=== PATIENT | male | born 1955 | race Caucasian/White ===

== ENCOUNTER 2018-12-30 10:34 | Inpatient (IN) | payer OTHER, MEDICAID ==
[~2018-12-30] VITALS: Ht 175.3 cm; Wt 72.6 kg
[2018-12-30] VITALS (32 sets, daily range): BP systolic 58–162; BP diastolic 34–92
--- NOTE | 2018-12-30 10:57 | NUR ---
PT TAKE BY W/C WITH FAMILY TO ER BED 10
--- NOTE | 2018-12-30 10:58 | NUR ---
DR. COATS BEDSIDE EVALUATING PT
--- NOTE | 2018-12-30 11:00 | NUR ---
brought in by caretakers from detention [facility] c/o generalized weakness, drooling and nasal congestion x last night. cataract to L eye. diminshed lung sounds bilaterally. pt is usually able to respond with one word sentences. no gag reflex at this time. not verbally responsive. usually able to sit upright. pt hunched over and not able to keep himself straight in bed. treated for pink eye 2 days ago rx neomycin gtts hx---mrcp, seizure, schizophrenia, bph, cerebal palsy rx===see list
[2018-12-30] MEDS ORDERED: NACL 0.9% 1,000 ML IV SCH ×3 (11:04→18:25)
--- NOTE | 2018-12-30 11:06 | NUR ---
PLACED PT ON VISION BIPAP ST 12/5 RR 20 FIO2 100 , ALARMS ARE ON AND AUDIBLE, PT WEARING F\F MASK SIZE LG, BIPAP PLUGGED INTO RED OUTLET
--- NOTE | 2018-12-30 11:06 | NUR ---
BIPAP PLACED ON PT, RT AT BEDSIDE
--- NOTE | 2018-12-30 11:29 | NUR ---
# 14 FR Urinary catheter inserted utilizing sterile technique. Immediate return of YELLOW urine noted. Urine sample collected and sent to lab. Pt tolerated procedure WELL
[2018-12-30] MEDS ORDERED: NACL 0.9% 1,000 ML IV ONE (11:35)
--- NOTE | 2018-12-30 11:40 | NUR ---
INCREASED IPAP TO 14 DECREASED FIO2 TO .[address] COATS
[2018-12-30] MEDS ORDERED: PIPERACILLIN/TAZOBACTAM 3.375 GM in DEXTROSE 5% 50 ML IV ONE (11:45)
[2018-12-30 11:52] LABS: BASOPHILS % (AUTO) 0.2 % (0.0-2.0); EOSINOPHILS % (AUTO) 0.1 % (0.0-4.0); HEMATOCRIT 40.4 % (36-52); HEMOGLOBIN 13.4 g/dL (12.0-18.0); LYMPHOCYTES # (AUTO) 1.3 K/uL (2.0-11.5); LYMPHOCYTES % (AUTO) 9.5 % (20.5-51.1); MEAN CORPUSCULAR HEMOGLOBIN 32 pg (27-31); MEAN CORPUSCULAR HGB CONC 33 g/dL (33-37); MEAN CORPUSCULAR VOLUME 96.5 fL (80-94); MONOCYTES # (AUTO) 1.7 K/uL (0.8-1.0); MONOCYTES % (AUTO) 12.1 % (1.7-9.3); NEUTROPHILS # (AUTO) 10.9 K/uL (1.8-7.7); NEUTROPHILS % (AUTO) 78.1 % (42.2-75.2); PLATELET COUNT (AUTO) 182 K/uL (140-450); RED BLOOD CELL COUNT(AUTO) 4.19 MIL/uL (4.20-6.10); RED CELL DISTRIBUTION WIDTH 14.2 % (11.6-13.7)
[2018-12-30] MEDS ORDERED: PIPERACILLIN/TAZOBACTAM 3.375 GM VIAL IV ONE (12:00)
[2018-12-30 12:01] LABS: ANION GAP 10.5 (8-16); CARBON DIOXIDE 31.5 mmol/L (21-32); CREATININE 0.8 mg/dL (0.7-1.3)
[2018-12-30 12:08] LABS: ALBUMIN 2.8 g/dL (3.4-5.0); TOTAL BILIRUBIN 0.6 mg/dL (0.0-1.0)
--- NOTE | 2018-12-30 12:17 | NUR ---
lactic acid 3.0, reported to meme
[2018-12-30] MEDS ORDERED: DOCUSATE SODIUM 100 MG GELCAP PO PRN (12:30)
[2018-12-30] MEDS ORDERED: ACETAMINOPHEN 325 MG TAB PO PRN (12:30)
[2018-12-30] MEDS ORDERED: ONDANSETRON 4 MG/2 ML VIAL IM/IVP PRN (12:30)
[2018-12-30 12:39] LABS: APPEARANCE,URINE CLOUDY (CLEAR); BILIRUBIN,URINE NEGATIVE (NEGATIVE); BLOOD, URINE 3+ (NEGATIVE); COLOR,URINE YELLOW (YELLOW); LEUKOCYTE ESTERASE ,URINE 2+ (NEGATIVE); NITRITE, URINE NEGATIVE (NEGATIVE); UGLUCOSE TRACE (NEGATIVE)
[2018-12-30 12:51] LABS: RBC,URINE 11-20 (MOD) /HPF (0-5); WBC,URINE >25 (MANY) /HPF (0-5)
[2018-12-30] MEDS ORDERED: ALBUTEROL SULFATE/IPRATROPIU 3 ML SOL IH PRN (13:05)
--- NOTE | 2018-12-30 13:11 | NUR ---
PT RETURNED FROM CT
--- NOTE | 2018-12-30 13:12 | NUR ---
1258-- PT LEFT TO CT VIA ANJELICA
--- NOTE | 2018-12-30 13:13 | NUR ---
PMD AT BEDSIDE
--- NOTE | 2018-12-30 13:40 | NUR ---
pt resting in bed, caregiver bedside, vital signs taken
[2018-12-30] MEDS ORDERED: LORazepam 2 MG/ML VIAL IVP SCH (13:50)
--- NOTE | 2018-12-30 14:03 | NUR ---
Pt transferred to ICU via BED WITH TRISHA LOPEZ .
[2018-12-30 14:06] LABS: BARBITURATE, URINE NEG. ng/ml (NEG <=200); BENZODIAZEPINE, URINE NEG. ng/mL (NEG <=200); CANNABINOID, URINE NEG. ng/mL (NEG <=50); COCAINE, URINE NEG. ng/mL (NEG <=300); OPIATE, URINE NEG. ng/mL (NEG <=2000); PHENCYCLIDINE SCREEN,URINE NEG. ng/mL (NEG <=25)
--- NOTE | 2018-12-30 14:10 | NUR ---
Patient will be admitted to care of [facility]. Admited to icu. Will go to room 7. Belongings list completed. Report to aman powers.
[2018-12-30 14:15] LABS: CHOL/HDL RATIO 2.6 (1-4.5); FREE T4 (FREE THYROXINE) 0.96 ng/dL (0.76-1.46); MAGNESIUM 2.1 mg/dL (1.8-2.4); THYROID STIMULATING HORMONE 5.24 uIU/mL (0.34-3.74)
--- NOTE | 2018-12-30 14:15 | NUR ---
ADMITTED FROM ER THIS 63 YR. OLD WHITE MALE PER ANJELICA ACCPD. BY ER NURSES WITH CHIEF COMPLAINT OF WEAKNESS AND SOB. PT ON BIPAP 14/, FI02 40%. R 20/MIN. 02 SAT 100%. NO RESP. DISTRESS NOTED. CAREGIVERS AT BEDSIDE. INFORMATION OBTAINED FROM CARE GIVERS. HEP LOCK ON RT HAND G 20. ORAL AND MAXILLOFACIAL SURGERY SHOWS AR TO AB HR 58 TO 65/MIN.,
[2018-12-30] MEDS ORDERED: DEXTROMETHORPHAN PO SCH (14:30)
[2018-12-30] MEDS ORDERED: PROMETHAZINE PO SCH (14:30)
--- NOTE | 2018-12-30 14:30 | NUR ---
RESTLESS AT TIMES TRIES TO REACH FOR BIPAP. REORIENTED PRN.
[2018-12-30] MEDS ORDERED: PHEN100C3 PO (14:43)
[2018-12-30] MEDS ORDERED: OMEP20TC12 PO (14:43)
[2018-12-30] MEDS ORDERED: CALC-53 PO (14:43)
[2018-12-30] MEDS ORDERED: PROM118S4 PO (14:43)
[2018-12-30] MEDS ORDERED: DOCU-299 PO (14:43)
[2018-12-30] MEDS ORDERED: LAM25 PO (14:43)
[2018-12-30] MEDS ORDERED: DEXT1DRO4 OP (14:43)
[2018-12-30] MEDS ORDERED: TAMS0.4C96 PO (14:43)
[2018-12-30] MEDS ORDERED: ARIP15TA1 PO (14:43)
[2018-12-30] MEDS ORDERED: DIVA500T1 PO (14:43)
[2018-12-30] MEDS ORDERED: LACT10SO1 PO (14:43)
[2018-12-30] MEDS ORDERED: PRAM0.5T4 PO (14:43)
[2018-12-30] MEDS ORDERED: TRAZ-343 PO (14:43)
[2018-12-30] MEDS ORDERED: HYDR25CA10 PO (14:43)
[2018-12-30] MEDS ORDERED: BENZ2TAB27 PO (14:43)
[2018-12-30] MEDS ORDERED: PROMETHAZINE DM 6.25/15MG-5ML ORASYR PO PRN (15:00)
[2018-12-30] MEDS: NACL 0.9% 1,000 ML IV SCH ×2 (15:00→21:11)
--- NOTE | 2018-12-30 15:30 | NUR ---
TEMP 94.6 DEGREES. BEAR HUGGER PLACED.
--- NOTE | 2018-12-30 15:58 | NUR ---
FNS CONSULT FOR FAILURE TO THRIVE WAS RECEIVED. RD RECOMMENDATIONS FOR TUBE FEEDING ARE JEVITY 1.2 @ 75 ML/HR X 24 HR WITH FREE WATER FLUSH 120 ML Q4H. START AT AT 15 ML/HR AND ADVANCE BY 15 ML/HR Q4H. -THIS WILL PROVIDE 2160 KCAL AND 108 GRAMS OF PROTEIN. CHRISSIE ART RD
--- NOTE | 2018-12-30 16:00 | NUR ---
DR. SZYMANSKI AT BEDSIDE AWARE OF PT'S HR AND BP.
--- NOTE | 2018-12-30 16:15 | NUR ---
DR. SZYMANSKI CALLED PT'S SISTER ALEXANDRO OLIVER. CONSENT FRO CENTRAL LINE INSERTION OBTAINED.
[2018-12-30] MEDS ORDERED: DOCUSATE SODIUM 100 MG GELCAP PO SCH (17:00)
--- NOTE | 2018-12-30 17:00 | NUR ---
UNABLE TO INSERT JUGULAR CENTRAL LINE. DR. SZYMANSKI SPOKE TO PT'S SISTER SISTER RE: FEMORAL CENTRAL LINE INSERTION. CONSENT OBTAINED.
[2018-12-30] MEDS ORDERED: LORazepam 2 MG/ML VIAL IM/IVP PRN (17:55)
--- NOTE | 2018-12-30 18:00 | NUR ---
FEMORAL LINE INSERTION UNSUCCESSFUL.
[2018-12-30] MEDS: PIPERACILLIN/TAZOBACTAM 3.375 GM in DEXTROSE 5% 50 ML IV SCH (18:03)
[2018-12-30] MEDS ORDERED: DEXTROSE 50% 50 ML SYR IVP PRN (18:20)
--- NOTE | 2018-12-30 18:30 | NUR ---
GOMEZ CATH. FR 16 INSERTED ASEPTICALLY. OBTAINED 350 ML OF CLOUDY YELLOW URINE.
[2018-12-30] MEDS ORDERED: ALBUTEROL SULFATE/IPRATROPIU 3 ML SOL IH SCH (19:00)
--- NOTE | 2018-12-30 19:00 | NUR ---
DR. RAMIREZ AT BEDSIDE TO INTUBATE PT.AND INSERT CENTRAL LINE.
[2018-12-30] MEDS ORDERED: PROPOFOL 1000 MG/100 ML PREMIX 100 ML IV ONE (19:04)
[2018-12-30] MEDS ORDERED: MIDAZOLAM MDV 50 MG in NACL 0.9% 40 ML IV PRN (19:40)
[2018-12-30] MEDS ORDERED: VANCOMYCIN PER PHARMACY MC PRN (19:40)
[2018-12-30 19:45] LABS: PHENYTOIN (DILANTIN) 10.5 ug/ml (10.0-20.0)
[2018-12-30] MEDS ORDERED: VANCOMYCIN 1GM/DEXT 5% PREMIX 200 ML IV SCH (20:00)
--- NOTE | 2018-12-30 20:00 | NUR ---
RECEIVED PT FROM JOCELYNE RICO, DR. RAMIREZ, AND FELLOW DOCTORS ARE AT THE BEDSIDE. PT IS ON LEVOPHED, INTUBATED ON THE VENT, BREATHING NORMALLY ON THE VENT. GCS 10, SEDATED. LIJ TLC INTACT, RIGHT FEMORAL ART LINE IS INTACT. GOMEZ CATHETER INTACT AND DRAINING WELL, OGT INSERTED BY SALOMÓN, C-XRAY DONE. WILL WAIT FOR THE RESULT.
[2018-12-30] MEDS ORDERED: CALCIUM CARBONATE PO SCH (21:00)
[2018-12-30] MEDS ORDERED: PHENYTOIN 100 MG CAPER PO SCH (21:00)
[2018-12-30] MEDS: PRAMIPEXOLE 0.5 MG TAB PO SCH (21:00)
[2018-12-30] MEDS: BENZTROPINE 1 MG TAB PO SCH (21:00)
[2018-12-30] MEDS ORDERED: THIAMINE 200 MG/2 ML VIAL ONE ×2 (21:00→21:12)
[2018-12-30] MEDS ORDERED: [UNRECOGNIZED DRUG - OTHER] PO SCH (21:00)
[2018-12-30] MEDS ORDERED: VITAMIN D3 PO SCH (21:00)
[2018-12-30] MEDS: PANTOPRAZOLE 40 MG INJ VIAL IVP SCH (21:06)
[2018-12-30] MEDS: CALCIUM CARB/VIT-D 500 MG/200 IU 1 TAB PO SCH (21:12)
[2018-12-30] MEDS: DIVALPROEX 500 MG TABEC PO SCH (21:12)
[2018-12-30] MEDS ORDERED: VANCOMYCIN 1,000 MG VIAL ONE (21:13)
[2018-12-30] MEDS ORDERED: PROPOFOL 1000 MG/100 ML PREMIX 100 ML IV PRN (21:30)
[2018-12-30 21:31] LABS: BASOPHILS % (AUTO) 0.1 % (0.0-2.0); EOSINOPHILS % (AUTO) 0.3 % (0.0-4.0); HEMATOCRIT 38.4 % (36-52); HEMOGLOBIN 12.9 g/dL (12.0-18.0); LYMPHOCYTES # (AUTO) 1.1 K/uL (2.0-11.5); LYMPHOCYTES % (AUTO) 9.2 % (20.5-51.1); MEAN CORPUSCULAR HEMOGLOBIN 32 pg (27-31); MEAN CORPUSCULAR HGB CONC 34 g/dL (33-37); MEAN CORPUSCULAR VOLUME 96.1 fL (80-94); MONOCYTES # (AUTO) 1.4 K/uL (0.8-1.0); MONOCYTES % (AUTO) 11.8 % (1.7-9.3); NEUTROPHILS # (AUTO) 9.5 K/uL (1.8-7.7); PLATELET COUNT (AUTO) 162 K/uL (140-450); RED CELL DISTRIBUTION WIDTH 13.7 % (11.6-13.7); WHITE BLOOD COUNT (AUTO) 12.1 K/uL (4.8-10.8)
[2018-12-30] MEDS: THIAMINE 200 MG in NACL 0.9% 50 ML IV SCH (21:33)
[2018-12-30 21:44] LABS: ALBUMIN 2.5 g/dL (3.4-5.0); ANION GAP 9.9 (8-16); CARBON DIOXIDE 27.7 mmol/L (21-32); CREATININE 0.4 mg/dL (0.7-1.3); POTASSIUM 3.6 mmol/L (3.5-5.1); TOTAL BILIRUBIN 0.6 mg/dL (0.0-1.0)
--- NOTE | 2018-12-30 22:57 | NUR ---
DR. DILLARD MADE AWARE OF THE C-XARY, SHE STATES OK TO USE.
--- NOTE | 2018-12-30 22:58 | NUR ---
PT COMFORTABLE, RESPONDING WELL TO LEVOPHED, IVF RUNNING, IV ABTX GIVEN. WILL CONTINUE TO MONITOR CLOSELY.
[2018-12-30 23:28] LABS: NEUTROPHILS % (AUTO) 78.6 % (42.2-75.2)
[2018-12-30] MEDS: ALBUTEROL SULFATE/IPRATROPIU 3 ML SOL IH SCH (23:34)
[2018-12-30] MEDS: MIDAZOLAM MDV 100 MG in NACL 0.9% 80 ML IV PRN (23:56)
[2018-12-30] MEDS: fentaNYL 1 MG in NACL 0.9% 80 ML IV PRN (23:59)
[2018-12-31] VITALS (101 sets, daily range): BP systolic 62–144; BP diastolic 32–109
[2018-12-31] MEDS ORDERED: PIPERACILLIN/TAZOBACTAM 3.375 GM VIAL IV ONE ×2 (01:03→05:32)
[2018-12-31] MEDS: Z-GUARD PASTE TP SCH ×2 (01:04→13:17)
[2018-12-31] MEDS: HYDROCORTISONE NA SUCC 100 MG/2 ML VIAL IV SCH ×5 (01:05→23:57)
[2018-12-31] MEDS: PIPERACILLIN/TAZOBACTAM 3.375 GM in DEXTROSE 5% 50 ML IV SCH ×4 (01:06→18:41)
--- NOTE | 2018-12-31 01:29 | NUR ---
PT SEDATED, COMFORTABLE, RESPONDING WELL TO LEVOPHED, TITRATING DOWN ON LEVOPHED PER PROTOCOL. WILL CONTINUE TO MONITOR CLOSELY.
[2018-12-31] MEDS: ALBUTEROL SULFATE/IPRATROPIU 3 ML SOL IH SCH ×6 (03:53→23:10)
[2018-12-31] MEDS: NACL 0.9% 1,000 ML IV SCH ×4 (04:38→22:57)
--- NOTE | 2018-12-31 05:02 | NUR ---
PT LIGHTLY SEDATED, V/S STABLE WITH LEVOPHED ONGOING, CONTINUE ON FENTANYL AND VERSED DRIP. NO S.S OF ANY ACUTE DISTRESS AT THIS TIME, WILL CONTINUE TO MONITOR CLOSELY.
[2018-12-31 05:19] LABS: BASOPHILS % (AUTO) 0.2 % (0.0-2.0); EOSINOPHILS % (AUTO) 0.3 % (0.0-4.0); HEMATOCRIT 30.8 % (36-52); HEMOGLOBIN 10.6 g/dL (12.0-18.0); LYMPHOCYTES # (AUTO) 0.9 K/uL (2.0-11.5); LYMPHOCYTES % (AUTO) 11.1 % (20.5-51.1); MEAN CORPUSCULAR HEMOGLOBIN 33 pg (27-31); MEAN CORPUSCULAR HGB CONC 34 g/dL (33-37); MEAN CORPUSCULAR VOLUME 95.8 fL (80-94); MONOCYTES # (AUTO) 0.7 K/uL (0.8-1.0); MONOCYTES % (AUTO) 7.9 % (1.7-9.3); NEUTROPHILS # (AUTO) 6.8 K/uL (1.8-7.7); NEUTROPHILS % (AUTO) 80.5 % (42.2-75.2); PLATELET COUNT (AUTO) 129 K/uL (140-450); RED BLOOD CELL COUNT(AUTO) 3.22 MIL/uL (4.20-6.10); RED CELL DISTRIBUTION WIDTH 13.6 % (11.6-13.7); WHITE BLOOD COUNT (AUTO) 8.4 K/uL (4.8-10.8)
[2018-12-31 05:24] LABS: ANION GAP 7.7 (8-16); CARBON DIOXIDE 27.8 mmol/L (21-32); CREATININE 0.4 mg/dL (0.7-1.3); POTASSIUM 3.5 mmol/L (3.5-5.1)
[2018-12-31 05:27] LABS: MAGNESIUM 1.7 mg/dL (1.8-2.4); PHOSPHORUS 3.2 mg/dL (2.5-4.9)
--- NOTE | 2018-12-31 05:53 | NUR ---
PT STABLE, RESPONDING WELL TO LEVOPHED AND SEDATION. WILL CONTINUE TO MONITOR CLOSELY.
[2018-12-31 06:43] LABS: PROTHROMBIN TIME 10.7 secs (10.8-13.4)
--- NOTE | 2018-12-31 06:59 | NUR ---
RECEIVED PT ON CARESCAPE ON DOCUMENTED SETTINGS, ALARMS ARE ON AUDIBLE, PTS ETT IS SECURE SIZE 7.5 25 CM , ANCHOR FAST IN PLACE,PT IN HF ASLEEP PT IS RESTRAINED,HHN GVIEN I\L WITH 3 MG DUONEB BMV HOB , VENT PLUGGED INTO RED OUTLET
--- NOTE | 2018-12-31 07:12 | NUR ---
DECREASED FIO2 TO 28 SPO2 100
--- NOTE | 2018-12-31 07:21 | NUR ---
BEDSIDE REPORT GIVEN TO FRANKLIN RN, PLAN TO START FEEDING, KEEP MAP ABOVE 65, AND CONTINUE TO FOLLOW MD'S ORDERS, TREATMENT PLANS,
--- NOTE | 2018-12-31 07:25 | NUR ---
RECEIVED BEDSIDE REPORT FROM BRAIDER TENDER RN. PT IS ETT TO VENT SIZE 7.5, AC/VC, FIO2 28% VT 350 RR 13 PEEP 5. SR ON MONITOR. FLACC-0, RASS -3. PERRL, SIZE 3. LUNG SOUNDS CLEAR, NO S/S OF ACUTE RESPIRATORY DISTRESS. S1S2 HEARD, CAP REFILL LESS THAN 3 SECONDS. NO EDEMA NOTED. ORAL GASTRIC TUBE IN PLACE, WILL START TUBE FEEDING. ABDOMEN SOFT AND NON TENDER. SOFT WRIST RESTRAINTS ON, NO SIGNS OF INJURY. GOMEZ CATH IN PLACE DRAINING CLOUDY YELLOW URINE. SACRAL AREA NONBLANCHABLE REDNESS. LEFT IJ CENTRAL LINE, TRIPLE LUMEN INFUSING FENTANYL 0.5MCG/KG/MIN AND VERSED 2ML/HR. LEVOPHED 2MCG/MIN, DRY WEIGHT 60 KG, NS AT 150 ML/HR. IV CATH RIGHT HAND 20G, RIGHT WRIST 20G, AND LEFT AC 20G, FLUSHED, PATENT AND INTACT. PT ON ARTERIAL PRESSURE MONITORING. 93/55. HOB ELEVATED, SIDE RAILS UP, WILL CONTINUE TO MONITOR.
[2018-12-31] MEDS ORDERED: MAG SULF 2000 MG/WATER PREMIX 50 ML IV SCH (07:30)
[2018-12-31] MEDS: ASCORBIC ACID INJ 1,500 MG in NACL 0.9% 100 ML IV SCH ×6 (08:20→23:56)
--- NOTE | 2018-12-31 08:32 | NUR ---
PATIENT HAS BEEN SCREENED AND CATEGORIZED HIGH NUTRITION RISK. PATIENT WILL BE SEEN WITHIN 1-2 DAYS OF ADMISSION. 12/31/18-01/01/[address]
[2018-12-31] MEDS ORDERED: NON-FORMULARY ITEM (Lactulose 30 ML) PO SCH (09:00)
[2018-12-31] MEDS ORDERED: NON-FORMULARY ITEM (Dextran 70/Hypromellose (Artificial Tears) 1 EACH) OP SCH (09:00)
[2018-12-31] MEDS: VANCOMYCIN 750 MG in DEXTROSE 5% 250 ML IV SCH ×2 (09:36→16:56)
[2018-12-31] MEDS: BLOOD GLUCOSE MONITORING 1 DEV DEV FS SCH ×3 (09:40→17:09)
[2018-12-31] MEDS: PRAMIPEXOLE 0.5 MG TAB PO SCH ×2 (09:49→21:30)
[2018-12-31] MEDS: ARIPiprazole 10 MG TAB PO SCH (09:50)
[2018-12-31] MEDS: BENZTROPINE 1 MG TAB PO SCH ×2 (09:51→21:30)
[2018-12-31] MEDS: LACTULOSE 20 GM/30 ML UDC PO SCH (09:52)
[2018-12-31] MEDS: CALCIUM CARB/VIT-D 500 MG/200 IU 1 TAB PO SCH ×2 (09:52→21:31)
[2018-12-31] MEDS: DIVALPROEX 500 MG TABEC PO SCH (09:53)
[2018-12-31] MEDS: TAMSULOSIN 0.4 MG CAP PO SCH (09:55)
[2018-12-31] MEDS: lamoTRIgine 25 MG TAB PO SCH (09:55)
[2018-12-31] MEDS: PANTOPRAZOLE 40 MG INJ VIAL IVP SCH ×2 (09:56→21:08)
[2018-12-31] MEDS: POLYVINYL ALCOHOL 1.4% OP 15 ML SOL OP SCH (09:57)
--- NOTE | 2018-12-31 10:05 | NUR ---
OGT CLOGGED, PULLED IT OUT AND INSERTED A NEW OGT. AUSCULTATED FOR POSITIVE PLACEMENT AND CONFIRMED WITH NORMA RICO.
[2018-12-31] MEDS ORDERED: DOCUSATE 100 MG/10 ML UDC NG PRN (10:07)
[2018-12-31] MEDS ORDERED: VALPROIC ACID 250 MG/5 ML UDC ONE (10:11)
[2018-12-31] MEDS: PHENYTOIN 100 MG/4 ML UDC NG SCH ×3 (10:15→21:30)
[2018-12-31] MEDS ORDERED: PHENYTOIN 100 MG/4 ML UDC NG SCH (10:19)
--- NOTE | 2018-12-31 11:00 | NUR ---
STARTED G TUBE FEEDING AT 15ML/HR, WATER FLUSH 120ML Q4H.
[2018-12-31] MEDS: THIAMINE 200 MG in NACL 0.9% 50 ML IV SCH ×2 (11:13→21:26)
--- NOTE | 2018-12-31 11:35 | NUR ---
STARTED CVP MONITORING.
[2018-12-31] MEDS: NOREPINEPHRINE 4 MG in DEXTROSE 5% 250 ML IV PRN (11:38)
--- NOTE | 2018-12-31 13:05 | NUR ---
OGT RESIDUAL 0ML, INCREASED FEEDING TO 30ML/HR. H2O FLUSH 120ML Q4H
[2018-12-31] MEDS ORDERED: VALPROIC ACID 250 MG/5 ML UDC NG SCH (13:29)
--- NOTE | 2018-12-31 14:31 | NUR ---
12/31/18 RD INITIAL ASSESSMENT COMPLETED PLEASE REFER TO NUTRITION ASSESSMENT UNDER CARE ACTIVITY FOR ESTIMATED NUTRITIONAL NEEDS. 1. CONTINUE JEVITY @ 75 ML/HR -THIS WILL PROVIDE 1800 ML, 2160 KCAL, AND 108 GM OF PROTEIN, WHICH MEET >75% OF ESTIMATED NEEDS 2. CONTINUE FREE WATER FLUSH OF 120 ML Q4H 3. IF PATIENT IS WEANED OFF MECH. VENT, CONSIDER A SWALLOW EVALUATION ORDER 4. RD TO FOLLOW-UP 2-3 DAYS, HIGH RISK CHRISSIE ART RD
--- NOTE | 2018-12-31 16:15 | NUR ---
OGT RESIDUAL 0ML, INCREASED FEEDING TO 45ML/HR. H2O FLUSH 120ML Q4H
--- NOTE | 2018-12-31 16:45 | NUR ---
CVP 9, A LINE PRESSURE 96/48
[2018-12-31] MEDS: DOCUSATE 100 MG/10 ML UDC NG SCH (17:02)
[2018-12-31] MEDS: OFLOXACIN 0.3% OP 5 ML BTL OP SCH ×2 (17:07→21:22)
--- NOTE | 2018-12-31 17:17 | NUR ---
BLOOD SUGAR 153, MADE DR MASCORRO AWARE THAT RUBIA IS NOT ON EMAR. DR MASCORRO SAID IT'S OK, SHE IS NOT TOO WORRIED ABOUT IT. BUT IF IT GOES UP TO 180 AND ABOVE, WE NEED TO LET HER KNOW.
--- NOTE | 2018-12-31 19:00 | NUR ---
OGT RESIDUAL 20ML, INCREASED FEEDING TO 60ML/HR. H2O FLUSH 120ML Q4H
--- NOTE | 2018-12-31 19:15 | NUR ---
RECEIVED CHANGE OF SHIFT REPORT FROM AM NURSE. PATIENT IS SEDATED AND INTUBATED - ETT SIZE 7.5 TO VENT . ETT TO VENT WITH SETTINGS: FIO2 28%, AC 14, VT 350, FLOW 30 L/MIN, AND PEEP 5. PERRL IS PRESENT WITH PUPILS BILATERAL SIZE 3MM. SKIN IS WARM, DRY, AND INTACT EXCEPT FOR SACRAL REDNESS WHICH IS CURRENTLY COVERED BY A CLEAN DRY/INTACT DRESSNING. PULSES 2+ BILATERAL UPPER AND LOWER EXTREMITIES. LUNG SOUNDS HAVE CRACKLES THROUGHOUT. NSR ON MATERIALS INTERN. S1 AND S2 SOUND PRESENT. LEFT AC 20 GAUGE PATENT IV SITE WITH DRESSING/SITE DRY AND INTACT, AND SALINE LOCKED. RIGHT HAND 20 GAUGE PATENT IV SITE WITH DRESSING/SITE DRY AND INTACT. RIGHT WRIST 20 GAUGE PATENT IV SITE WITH DRESSING/SITE DRY AND INTACT. RIGHT FEMORAL CENTRAL LINE WITH A-LINE - WHICH HAS BEEN ZEROED AND FLUSHED - LINE IS PATENT AND DRESSING/SITE IS DRY AND INTACT. PATIENT IS HAS LEFT IJ TRIPLE LUMEN CENTRAL LINE WITH ALL LUMENS PATENT AND SITE/DRESSING IS DRY/INTACT. RIGHT IJ HAS CVP MONITORING WHICH CURRENTLY READS 8 AFTER HAVING BEEN ZEROED AND FLUSHED. VERSED IS RUNNING AT 2MG/H, VITAMIN C IS RUNNING 134 ML/H, LEVOPHED IS RUNNING AT 3 MCG/MIN, FENTANYL IS RUNNING AT 0.5 MCG/KG/H, AND NS IS RUNNING AT 150ML/H. PATIENT HAS OG TUBE IN PLACE WITH 50ML GASTRIC RESIDUALS AT THIS TIME, AND TUBE IS PATENT AND POSITIVE FOR PLACEMENT. FEEDING FORMULA IS JEVITY 1.2 RUNNING AT 45ML/H WITH WATER FLUSH 120CC Q4H (WILL INCREASE FORMULA UP TILL 75ML/H THIS SHIFT PRESCRIBED, AND IF PATIENT CAN TOLERATE IT). GOMEZ CATHETER IN PLACE AND URINE IS ALEXEI AND CLEAR. NO BOWEL MOVEMENT AT THIS TIME. BED LEFT IN LOW SEMI FOWLERS POSITION, SIDE RAILS UPX2 WITH CALL LIGHT WITHIN REACH. WILL CONTINUE TO MONITOR.
[2018-12-31] MEDS ORDERED: THIAMINE 200 MG/2 ML VIAL ONE (21:00)
[2018-12-31] MEDS ORDERED: PHENYTOIN 100 MG/4 ML UDC ONE ×2 (21:17→21:42)
[2018-12-31] MEDS: VALPROIC ACID 250 MG/5 ML UDC NG SCH (21:28)
[2018-12-31] MEDS: FERROUS SULFATE 300 MG/5 ML UDC GT SCH (21:30)
--- NOTE | 2018-12-31 21:30 | NUR ---
RECEIVED A CALL FROM PT'S CAREGIVER, BRIANNE BENITEZ, AND SHE WAS WANTING AN UPDATE REGARDING PT'S CONDITION. UPDATE WAS PROVIDED.
--- NOTE | 2018-12-31 21:30 | NUR ---
GAVE SCHEDULED MEDS, REPOSITIONED PATIENT'S HEAD, AND SUCTIONED PATIENT (THICK/LARGE AMOUNT OF SECRETIONS WERE EXTRACTED). PATIENT TOLERATED CARE WELL AND VITAL SIGNS ARE STABLE.
[2019-01-01] VITALS (104 sets, daily range): BP systolic 77–141; BP diastolic 41–109
--- NOTE | 2019-01-01 | NUR ---
GAVE SCHEDULED MEDS, REPOSITIONED PATIENT, PERFORMED ORAL CARE AND SUCTIONED PATIENT (THICK/LARGE AMOUNT OF SECRETIONS WERE EXTRACTED). PATIENT'S NECK TOWEL WAS ALSO CHANGED AND SECRETIONS ON SURROUNDING NECK/MOUTH WERE CLEANED PATIENT TOLERATED CARE WELL AND VITAL SIGNS ARE STABLE.
[2019-01-01] MEDS: PIPERACILLIN/TAZOBACTAM 3.375 GM in DEXTROSE 5% 50 ML IV SCH ×3 (00:01→12:28)
[2019-01-01] MEDS: VANCOMYCIN 750 MG in DEXTROSE 5% 250 ML IV SCH ×2 (01:55→09:03)
[2019-01-01] MEDS: Z-GUARD PASTE TP SCH ×2 (01:56→13:50)
--- NOTE | 2019-01-01 02:00 | NUR ---
GAVE SCHEDULED MEDS AND REPOSITIONED PATIENT.PATIENT TOLERATED CARE WELL AND VITAL SIGNS ARE STABLE.
[2019-01-01] MEDS: ALBUTEROL SULFATE/IPRATROPIU 3 ML SOL IH SCH ×6 (03:25→22:52)
--- NOTE | 2019-01-01 03:47 | NUR ---
PATIENT HAS BOWEL MOVEMENT - MEDIUM/BROWN SOFT DIARRHEA NOTED. ALL LINENS WERE CHANGED AND PATIENT WAS CLEANED. PATIENT TOLERATED CARE WELL AT THIS TIME. WILL CONTINUE TO MONITOR Addendum: 01/01/19 at 0633 by Steven Lin RN WRONG PATIENT
[2019-01-01] MEDS: ASCORBIC ACID INJ 1,500 MG in NACL 0.9% 100 ML IV SCH ×4 (06:12→23:48)
[2019-01-01] MEDS: HYDROCORTISONE NA SUCC 100 MG/2 ML VIAL IV SCH ×4 (06:13→23:45)
--- NOTE | 2019-01-01 06:51 | NUR ---
RECEIVED A CALL FROM PT'S SISTER, LADARIUS, SHE WANTED AN UPDATE REGARDING THE PT'S CONDITION. INFORMED HER THAT INFORMATION COULD NOT BE DISCLOSED DUE TO HER NAME NOT LISTED ON THE PT'S FACE SHEET ON FILE. PER PT'S SISTER, HER SISTER ALEXANDRO ALREADY ADDED HER ON THE LIST YESTERDAY. CALLED SLAG WHEELER TO CLARIFY THIS. THERE WAS NO UPDATED FACE SHEET. THE CURRENT COPY OF THE FACE SHEET IN THE CHART IS THE CURRENT. TRANSFERRED THE PHONE CALL TO THE SLAG WHEELER TO EXPLAIN THE SITUATION IN BETTER DETAIL.
--- NOTE | 2019-01-01 07:10 | NUR ---
RECEIVED BEDSIDE REPORT FROM NURSING CLINICAL DIRECTOR RN, ALMA. PT IS ETT TO VENT SIZE 7.5, TEETH LINE 25CM. AC/VC, FIO2 28% VT 350 RR 14 FLOW 30 PEEP 5. SR ON MONITOR. FLACC-0, RASS -3. PERRL, SIZE 3. OPENS EYES TO NAME. LUNG SOUNDS CLEAR, NO S/S OF ACUTE RESPIRATORY DISTRESS. S1S2 HEARD, CAP REFILL LESS THAN 3 SECONDS. NO EDEMA NOTED. ORAL GASTRIC TUBE IN PLACE, RESIDUAL 50ML. ABDOMEN SOFT AND NON TENDER. SOFT WRISTS RESTRAINT ON, NO SIGNS OF INJURY. GOMEZ CATH IN PLACE DRAINING CLOUDY YELLOW URINE WITH SEDIMENTS, CLEARER THAN YESTERDAY. SACRAL AREA BLANCHABLE REDNESS, OPTIFOAM DRESSING IN PLACE. LEFT IJ CENTRAL LINE, TRIPLE LUMEN INFUSING FENTANYL 0.5MCG/KG/MIN AND VERSED 2ML/HR. LEVOPHED 2MCG/MIN, DRY WEIGHT 60 KG, NS AT 150 ML/HR. IV CATH RIGHT HAND 20G, RIGHT WRIST 20G, AND LEFT AC 20G, FLUSHED, PATENT AND INTACT. PT ON ARTERIAL PRESSURE AND CVP MONITORING. HOB ELEVATED, SIDE RAILS UP, WILL CONTINUE TO MONITOR.
[2019-01-01] MEDS: fentaNYL 1 MG in NACL 0.9% 80 ML IV PRN (07:19)
--- NOTE | 2019-01-01 07:39 | NUR ---
RECIVED PT ON VENT WITH SETTINGS CHARTED BREATH SOUNDS PRESENT BILAT CLEAR SXN PT WITH MIN AMT OFF WHITE SECS ETT SECURE AMBU BAG AT BEDSIDE VENT PLUGGED INTO JANE OUTLET WILL CONTINUE TO MONITOR PT ON VENT
[2019-01-01] MEDS: NACL 0.9% 1,000 ML IV SCH (08:03)
[2019-01-01 09:04] LABS: BASOPHILS % (AUTO) 0.2 % (0.0-2.0); EOSINOPHILS % (AUTO) 0.1 % (0.0-4.0); HEMATOCRIT 29.1 % (36-52); HEMOGLOBIN 9.9 g/dL (12.0-18.0); LYMPHOCYTES # (AUTO) 0.6 K/uL (2.0-11.5); LYMPHOCYTES % (AUTO) 7.9 % (20.5-51.1); MEAN CORPUSCULAR HEMOGLOBIN 33 pg (27-31); MEAN CORPUSCULAR HGB CONC 34 g/dL (33-37); MEAN CORPUSCULAR VOLUME 96.3 fL (80-94); MONOCYTES # (AUTO) 0.6 K/uL (0.8-1.0); MONOCYTES % (AUTO) 7.8 % (1.7-9.3); NEUTROPHILS # (AUTO) 6.8 K/uL (1.8-7.7); PLATELET COUNT (AUTO) 135 K/uL (140-450); RED BLOOD CELL COUNT(AUTO) 3.02 MIL/uL (4.20-6.10); RED CELL DISTRIBUTION WIDTH 13.7 % (11.6-13.7)
[2019-01-01] MEDS: THIAMINE 200 MG in NACL 0.9% 50 ML IV SCH ×2 (09:07→20:27)
[2019-01-01 09:18] LABS: ANION GAP 7.4 (8-16); CARBON DIOXIDE 30.6 mmol/L (21-32); CREATININE 0.4 mg/dL (0.7-1.3)
[2019-01-01 09:22] LABS: MAGNESIUM 1.9 mg/dL (1.8-2.4); PHOSPHORUS 2.3 mg/dL (2.5-4.9)
[2019-01-01] MEDS: BLOOD GLUCOSE MONITORING 1 DEV DEV FS SCH ×3 (10:00→17:29)
[2019-01-01] MEDS: ARIPiprazole 10 MG TAB PO SCH (10:07)
[2019-01-01] MEDS: LACTULOSE 20 GM/30 ML UDC PO SCH (10:07)
[2019-01-01] MEDS: VALPROIC ACID 250 MG/5 ML UDC NG SCH ×2 (10:08→20:31)
[2019-01-01] MEDS: CALCIUM CARB/VIT-D 500 MG/200 IU 1 TAB PO SCH ×2 (10:08→20:31)
[2019-01-01] MEDS: lamoTRIgine 25 MG TAB PO SCH (10:08)
[2019-01-01] MEDS: PANTOPRAZOLE 40 MG INJ VIAL IVP SCH ×2 (10:08→20:30)
[2019-01-01] MEDS: TAMSULOSIN 0.4 MG CAP PO SCH (10:08)
[2019-01-01] MEDS: FERROUS SULFATE 300 MG/5 ML UDC GT SCH ×2 (10:08→20:31)
[2019-01-01] MEDS: BENZTROPINE 1 MG TAB PO SCH ×2 (10:09→20:29)
[2019-01-01] MEDS: POLYVINYL ALCOHOL 1.4% OP 15 ML SOL OP SCH (10:09)
[2019-01-01] MEDS: OFLOXACIN 0.3% OP 5 ML BTL OP SCH ×4 (10:10→20:31)
[2019-01-01] MEDS: PRAMIPEXOLE 0.5 MG TAB PO SCH ×2 (10:14→20:21)
[2019-01-01] MEDS: PHENYTOIN 100 MG/4 ML UDC NG SCH ×2 (10:16→20:29)
[2019-01-01] MEDS: NOREPINEPHRINE 4 MG in DEXTROSE 5% 250 ML IV PRN ×2 (10:29→18:51)
--- NOTE | 2019-01-01 10:30 | NUR ---
STARTED NEW FEEDING FORMULA BOTTLE. RUNNING AT RATE 75ML/HR, H2O FLUSHED 120ML Q6H Addendum: 01/01/19 at 1936 by Luke Weston RN H2O FLUSH 120ML Q4H
[2019-01-01] MEDS: NACL 0.45% 1,000 ML IV SCH (10:40)
[2019-01-01] MEDS ORDERED: POTASSIUM CHLORIDE 20% 40 MEQ/15 ML UDC GT SCH (12:00)
--- NOTE | 2019-01-01 12:15 | NUR ---
CALLED DR MASCORRO, MADE HER AWARE THAT PT'S BP DROPPED TO 79/49, DR MASCORRO SAID OK TO RESUME LEVOPHED AT 2MCG/MIN.
[2019-01-01] MEDS: MIDAZOLAM MDV 100 MG in NACL 0.9% 80 ML IV PRN (13:38)
[2019-01-01 15:06] LABS: FOLIC ACID 5.4 ng/mL (>3.0)
--- NOTE | 2019-01-01 16:55 | NUR ---
CALLED DR STEELE WHO IS COVERING FOR DR MASCORRO. MADE DR STEELE AWARE URINE CULTURE IS BACK. E COLI RESISTANT TO ZOSYN. PT USED TO BE ON VANCO BUT WAS DC'D BY DR MASCORRO TODAY AFTER THE MORNING DOSE. DR STEELE SAID HE WILL TAKE A LOOK.
[2019-01-01] MEDS ORDERED: VANCOMYCIN 1,000 MG in DEXTROSE 5% 250 ML IV SCH (17:00)
[2019-01-01] MEDS: DOCUSATE 100 MG/10 ML UDC NG SCH (17:25)
--- NOTE | 2019-01-01 17:49 | NUR ---
CONTINUED TO MONITOR PT ON VENT WITH SETTINGS CHARTED BREATH SOUNDS PRESENT BILAT COARSE ETT SECURE SXN PT WITH MIN AMT OFF WHITE SECS AMBU BAG AT BEDSIDE VENT PLUGGED INTO RED OUTLET
--- NOTE | 2019-01-01 18:05 | NUR ---
PT'S CAREGIVER ORESTES CAME AND BROUGHT CONSERVATOR PAPER. FILED IN PT'S CHART.
--- NOTE | 2019-01-01 19:20 | NUR ---
RECEIVED CHANGE OF SHIFT REPORT FROM AM NURSE. PATIENT IS SEDATED AND INTUBATED - ETT SIZE 7.5 TO VENT AND 27 AT LIP LINE . ETT TO VENT WITH SETTINGS: FIO2 28%, AC 14, VT 350, FLOW 30 L/MIN, AND PEEP 5. PERRL IS PRESENT WITH PUPILS BILATERAL SIZE 3MM. SKIN IS WARM, DRY, AND INTACT EXCEPT FOR SACRAL REDNESS WHICH IS CURRENTLY COVERED BY A CLEAN DRY/INTACT DRESSNING. PULSES 2+ BILATERAL UPPER AND LOWER EXTREMITIES. LUNG SOUNDS HAVE CRACKLES THROUGHOUT, BUT MORE SO ON THE LEFT UPPPER/LOW LOBES. NSR ON MECHANIC WELDER TRUCK DRIVER. S1 AND S2 SOUND PRESENT. LEFT AC 20 GAUGE PATENT IV SITE WITH DRESSING/SITE DRY AND INTACT, AND SALINE LOCKED. RIGHT HAND 20 GAUGE PATENT IV SITE WITH DRESSING/SITE DRY AND INTACT. RIGHT WRIST 20 GAUGE PATENT IV SITE WITH DRESSING/SITE DRY AND INTACT. RIGHT FEMORAL CENTRAL LINE WITH A-LINE - WHICH HAS BEEN ZEROED AND FLUSHED - LINE IS PATENT AND DRESSING/SITE IS DRY AND INTACT. PATIENT IS HAS LEFT IJ TRIPLE LUMEN CENTRAL LINE WITH ALL LUMENS PATENT AND SITE/DRESSING IS DRY/INTACT. RIGHT IJ HAS CVP MONITORING WHICH CURRENTLY READS 13 AFTER HAVING BEEN ZEROED AND FLUSHED. VERSED IS RUNNING AT 2MG/H, NS KVO AT 1 ML/H, LEVOPHED IS RUNNING AT 2 MCG/MIN, FENTANYL IS RUNNING AT 1 MCG/KG/H, AND NS IS RUNNING AT 150ML/H. PATIENT HAS OG TUBE IN PLACE WITH 50ML GASTRIC RESIDUALS AT THIS TIME, AND TUBE IS PATENT AND POSITIVE FOR PLACEMENT. FEEDING FORMULA IS JEVITY 1.2 RUNNING AT 75ML/H WITH WATER FLUSH 120CC Q4H (WILL INCREASE FORMULA UP TILL 75ML/H THIS SHIFT PRESCRIBED, AND IF PATIENT CAN TOLERATE IT). GOMEZ CATHETER IN PLACE AND URINE IS ALEXEI AND CLEAR. NO BOWEL MOVEMENT DURING AM SHIFT NOR AT THIS TIME. BED LEFT IN LOW SEMI FOWLERS POSITION, SIDE RAILS UPX2 WITH CALL LIGHT WITHIN REACH. WILL CONTINUE TO MONITOR.
[2019-01-01] MEDS ORDERED: THIAMINE 200 MG/2 ML VIAL ONE (20:06)
--- NOTE | 2019-01-01 21:15 | NUR ---
GAVE SCHEDULED MEDS, REPOSITIONED PATIENT'S HEAD, AND SUCTIONED PATIENT (THICK/LARGE AMOUNT OF SECRETIONS WERE EXTRACTED). PATIENT TOLERATED CARE WELL AND VITAL SIGNS ARE STABLE.
--- NOTE | 2019-01-01 21:52 | NUR ---
SPOKE WITH DR. BUSTILLO AND INFORMED HER OF PATIENTS LOW PLATELET AND HBG COUNT WELL BLOOD TINGED SECRETIONS. SHE ORDERED ME TO HOLD THE HEPARIN DOSE FOR NOW AND NOT ADMINISTERED IT.
[2019-01-02] VITALS (90 sets, daily range): BP systolic 83–166; BP diastolic 29–120
[2019-01-02] MEDS: Z-GUARD PASTE TP SCH ×2 (01:30→13:38)
[2019-01-02] MEDS: ALBUTEROL SULFATE/IPRATROPIU 3 ML SOL IH SCH ×6 (02:42→23:34)
--- NOTE | 2019-01-02 03:06 | NUR ---
GAVE SCHEDULED MEDS, GAVE ORAL VAP CARE, SUCTIONED PATIENT (THICK/LARGE AMOUNT OF SECRETIONS WERE EXTRACTED). PATIENT TOLERATED CARE WELL AND VITAL SIGNS ARE STABLE.
[2019-01-02] MEDS: HYDROCORTISONE NA SUCC 100 MG/2 ML VIAL IV SCH (05:23)
[2019-01-02] MEDS: ASCORBIC ACID INJ 1,500 MG in NACL 0.9% 100 ML IV SCH (05:24)
[2019-01-02 05:40] LABS: BASOPHILS % (AUTO) 0.1 % (0.0-2.0); EOSINOPHILS % (AUTO) 0.1 % (0.0-4.0); HEMATOCRIT 28.6 % (36-52); HEMOGLOBIN 9.7 g/dL (12.0-18.0); LYMPHOCYTES % (AUTO) 10.7 % (20.5-51.1); MEAN CORPUSCULAR HEMOGLOBIN 33 pg (27-31); MEAN CORPUSCULAR HGB CONC 34 g/dL (33-37); MEAN CORPUSCULAR VOLUME 96.8 fL (80-94); MONOCYTES # (AUTO) 0.8 K/uL (0.8-1.0); MONOCYTES % (AUTO) 8.2 % (1.7-9.3); NEUTROPHILS # (AUTO) 7.7 K/uL (1.8-7.7); NEUTROPHILS % (AUTO) 80.9 % (42.2-75.2); PLATELET COUNT (AUTO) 154 K/uL (140-450); RED BLOOD CELL COUNT(AUTO) 2.96 MIL/uL (4.20-6.10); RED CELL DISTRIBUTION WIDTH 13.8 % (11.6-13.7); WHITE BLOOD COUNT (AUTO) 9.6 K/uL (4.8-10.8)
[2019-01-02 06:52] LABS: ANION GAP 6.8 (8-16); CARBON DIOXIDE 35.6 mmol/L (21-32); CREATININE 0.3 mg/dL (0.7-1.3); POTASSIUM 4.4 mmol/L (3.5-5.1)
--- NOTE | 2019-01-02 07:25 | NUR ---
RECEIVED BEDSIDE REPORT FROM BUSINESS SEGMENT MANAGER RN, NEGRITA. PT IS ETT TO VENT SIZE 7.5, TEETH LINE 26CM. AC/VC, FIO2 28% VT 350 RR 14 FLOW 30 PEEP 5. SR/SB ON MONITOR. FLACC-0, RASS -3. PERRL, SIZE 3. OPENS EYES TO NAME. LUNG SOUNDS RHONCHI. NO S/S OF ACUTE RESPIRATORY DISTRESS. S1S2 HEARD, CAP REFILL LESS THAN 3 SECONDS. BOTH HANDS AND FEET LOOKS SLIGHTLY EDEMATOUS, NONPITTING. ORAL GASTRIC TUBE AUSCULTATED, IN PLACE, RESIDUAL 10ML. ABDOMEN SOFT AND NON TENDER. SOFT WRISTS RESTRAINT ON, NO SIGNS OF INJURY. GOMEZ CATH IN PLACE DRAINING CLEAR YELLOW URINE. SACRAL AREA BLANCHABLE REDNESS, OPTIFOAM DRESSING IN PLACE. LEFT IJ CENTRAL LINE, TRIPLE LUMEN INFUSING FENTANYL 1MCG/KG/MIN AND VERSED 2ML/HR. LEVOPHED 2MCG/MIN, DRY WEIGHT 60 KG, 1/2 NS AT 50 ML/HR, CVC DRESSING LOOSE, WILL CHANGE IT. IV CATH RIGHT HAND 20G, RIGHT WRIST 20G, AND LEFT AC 20G, FLUSHED, PATENT AND INTACT. PT ON ARTERIAL PRESSURE AND CVP MONITORING, NOT READING CORRECTLY, WILL ZERO THEM. HOB ELEVATED 30DEG, SIDE RAILS UP, WILL CONTINUE TO MONITOR. Addendum: 01/02/19 at 1131 by Luke Weston RN BLOOD TINGED SECRETION NOTED IN THE SUCTION CATH. ASKED IF RT SHIRA SUCTIONED PT, SHIRA SAID NO.
--- NOTE | 2019-01-02 07:53 | NUR ---
RECEIVED INTUBATED PT WITH A 7.5 ETT SECURED @26TEETH/GUMS ON VENT. SETTINGS AC/VC 14 VT 350, PEEP 5 AND FIO2 28%. FIO2 INCREASED TO 32% DUE TO DESATURATION THAT WAS 88%. NURSE MADE AWARE. VENT ALARMS ON AND FUNCTIONING. VENT IS PLUGGED INTO A RED OUTLET WITH ALARMS ON AND FUNCTIONING. WILL CONTINUE TO MONITOR.
--- NOTE | 2019-01-02 08:10 | NUR ---
PT DESATING TO 89%, RT SHIRA IS HERE, SUCTIONED PT AND INCREASED FIO2 TO 32%. PT'S O2 SAT WENT BACK UP TO 97%.
[2019-01-02] MEDS: NACL 0.45% 1,000 ML IV SCH (08:20)
--- NOTE | 2019-01-02 08:25 | NUR ---
DR MCKOY AND DR MASCORRO DID THEIR ROUNDING.
[2019-01-02] MEDS ORDERED: BISACODYL 10 MG SUPP RC SCH (08:30)
--- NOTE | 2019-01-02 08:30 | NUR ---
ORAL CARE DONE, GOMEZ CARE DONE. ZEROED CVP, READING 7 AT THIS TIME, ZEROED ART LINE, READING IS 119/85.
--- NOTE | 2019-01-02 08:40 | NUR ---
BP 85/49, ASKED DR MASCORRO IF IT'S OK PUT PT ON JUST 1MCG/MIN LEVOPHED, DR MASCORRO SAID OK AND SLOWLY TITRATE IT DOWN TO 0.
[2019-01-02] MEDS: BLOOD GLUCOSE MONITORING 1 DEV DEV FS SCH ×3 (09:00→17:47)
[2019-01-02] MEDS ORDERED: POTASSIUM CHLORIDE 10 MEQ TABER PO SCH (09:00)
--- NOTE | 2019-01-02 09:30 | NUR ---
BRUISE NOTED ON RIGHT NECK. WILL TAKE PIC LATER. Addendum: 01/02/19 at 1845 by Luke Weston RN BRUISE LOCATION IS MORE LIKE ON THE RIGHT CHEEK, PIC TAKEN AT 1620, MADE DR MASCORRO AWARE.
--- NOTE | 2019-01-02 10:01 | NUR ---
RECEIVED CALL FROM RADIOLOGIST, ETT NEEDS TO PULL BACK 2CM. CALLED RT SILVA AT [address] MASCORRO AT 1001.
[2019-01-02] MEDS: PRAMIPEXOLE 0.5 MG TAB PO SCH ×2 (10:05→20:14)
[2019-01-02] MEDS: BENZTROPINE 1 MG TAB PO SCH ×2 (10:06→20:12)
[2019-01-02] MEDS: ARIPiprazole 10 MG TAB PO SCH (10:07)
[2019-01-02] MEDS: TAMSULOSIN 0.4 MG CAP PO SCH (10:09)
[2019-01-02] MEDS: PANTOPRAZOLE 40 MG INJ VIAL IVP SCH ×2 (10:09→20:14)
[2019-01-02] MEDS: lamoTRIgine 25 MG TAB PO SCH (10:10)
[2019-01-02] MEDS: CALCIUM CARB/VIT-D 500 MG/200 IU 1 TAB PO SCH ×2 (10:10→20:17)
[2019-01-02] MEDS: FERROUS SULFATE 300 MG/5 ML UDC GT SCH ×2 (10:13→20:16)
[2019-01-02] MEDS: LACTULOSE 20 GM/30 ML UDC PO SCH (10:13)
[2019-01-02] MEDS: VALPROIC ACID 250 MG/5 ML UDC NG SCH ×2 (10:14→20:57)
[2019-01-02] MEDS: PHENYTOIN 100 MG/4 ML UDC NG SCH ×2 (10:14→20:15)
[2019-01-02] MEDS: POLYVINYL ALCOHOL 1.4% OP 15 ML SOL OP SCH (10:15)
[2019-01-02] MEDS: OFLOXACIN 0.3% OP 5 ML BTL OP SCH ×4 (10:15→20:17)
--- NOTE | 2019-01-02 10:18 | NUR ---
ETT PULLED BACK 2cm PER CXR. NURSE MADE AWARE AND IS BEDSIDE. WILL REPEAT CXR.
--- NOTE | 2019-01-02 11:42 | NUR ---
PT AWAKE AT THIS TIME SLIGHTLY IRRITABLE BUT NOT IN ANY RESPIRATORY DISTRESS. PT UNABLE TO FOLLOW COMMANDS. WILL CONTINUE TO MONITOR.
[2019-01-02 14:44] LABS: MAGNESIUM 2.2 mg/dL (1.8-2.4); PHOSPHORUS 3.2 mg/dL (2.5-4.9)
--- NOTE | 2019-01-02 14:49 | NUR ---
CALLED LUDWIN, MADE HER AWARE RESULT OF THE DULCOLAX SUPPOSITORY WAS NOT VERY GOOD. DR MASCORRO SAID WILL ORDER FLEET ENEMA.
[2019-01-02] MEDS ORDERED: SODIUM PHOSPHATE 118 ML ENEM RC SCH (15:00)
--- NOTE | 2019-01-02 15:30 | NUR ---
PT AWAKE AT THIS TIME SLIGHTLY AGITATED MOVING AROUND IN BED, NO RESPIRATORY DISTRESS NOTED. WILL CONTINUE TO MONITOR.
--- NOTE | 2019-01-02 15:56 | NUR ---
Discharge Planning Note: Per Matthew, patient will be going to [facility]. Number to give report: [phone].
[2019-01-02] MEDS: LORazepam 2 MG/ML VIAL IVP PRN (15:59)
--- NOTE | 2019-01-02 16:30 | NUR ---
CALLED RESIDENT DR MASCORRO, MADE HER AWARE MIGUELINA ALREADY EVALUATED PT TODAY, BED AVAILABLE. DR MASCORRO SAID SHE IS NOT DC PT TODAY. WILL DO CPAP TRAIL AND TRANSFER ON SATURDAY. ALSO CALLED JAMIE SOCIAL WORK. MADE HIM AWARE OF THE SITUATION. JAMIE SAID HE IS CONTACTING DR KRUEGER AND WILL UPDATE ME ON THIS. AND I ASKED JAMIE TO CONTACT MIGUELINA IF DR KRUEGER DECIDE NOT TO TRANSFER PT TODAY.
--- NOTE | 2019-01-02 16:43 | NUR ---
RECEIVED A CALL FROM GERI BILLINGS, PT IS NOT TO BE TRANSFERRED AND SHE ALREADY CONTACTED MIGUELINA.
--- NOTE | 2019-01-02 16:44 | NUR ---
CALLED ALEXANDRO, PT'S SISTER AND LET HER KNOW PT IS NOT GOING TO BE TRANSFERRED TODAY. POSSIBLY ON SATURDAY. ALEXANDRO SAID IT'S OK, SHE WILL COME TOMORROW MORNING.
--- NOTE | 2019-01-02 17:00 | NUR ---
PT HAD BM, YELLOW STOOL, SMALL AMOUNT, PROBABLY STILL IMPACTED, WILL LET PIPE FITTER SUPERVISOR RN AND MD KNOW. APPLIED Z GUARD TO SACRAL AND NEW OPTIFOAM. BLANCHABLE REDNESS, SKIN IS INTACT.
[2019-01-02] MEDS: DOCUSATE 100 MG/10 ML UDC NG SCH (17:10)
--- NOTE | 2019-01-02 17:49 | NUR ---
PT REMAINS ON DOCUMENTED VENT SETTINGS. PT OPENS HIS EYES IS SLIGHTLY IRRITABLE BUT NOT IN RESPIRATORY DISTRESS. NURSE IS BEDSIDE. VENT ALARMS REMAIN ON AND FUNCTIONING. ETT IS SECURE WITH A PATENT AIRWAY.
--- NOTE | 2019-01-02 17:55 | NUR ---
PT SUCTIONED OBTAINED MODERATE AMOUNT OF THICK LEVY COLORED SECRETIONS, AIRWAY IS PATENT AND ETT IS SECURE.
[2019-01-02] MEDS: NOREPINEPHRINE 4 MG in DEXTROSE 5% 250 ML IV PRN (17:57)
--- NOTE | 2019-01-02 19:10 | NUR ---
RECEIVED REPORT FROM DAYSHIFT NURSE AT PATIENTS BEDSIDE, NO SIGNS OF DISTRESS AT THIS TIME, WILL FOLLOWUP CARE.
--- NOTE | 2019-01-02 20:05 | NUR ---
RECEIVED PATIENT RESTING WELL IN BED, EYES CLOSED, OPENS EYES TO NAME&LIGHT SHAKING. PATIENT IS ANOx1, CANNOT FOLLOW COMMANDS OR MAKE NEEDS KNOWN. EYES ARE REACTIVE TO LIGHT,SLUGGISH 3MM. SKIN IS WARM AND DRY, AFEBRILE. PATIENT IS ETT TO VENT, 24 AT THE TEETH, ACVC 28% FI02, TV 350, RATE 14, PEEP 5. LEFT IJ TRIPLE LUMEN INFUSING 1/2 NS @ 10ML/HR. CVP MONITORING IN PLACE, ZERO'D. RIGHT WRIST AND RIGHT HAND PERIPHERAL IV's 20G, BOTH FLUSHED AND PATENT AND SALINE LOCKED. LEFT AC 20G, ASYMPTOMATIC, FLUSHED AND SALINE LOCKED. RIGHT FEMORAL ARTERIAL LINE, DRESSING DRY AND INTACT. OGT IN PLACE TO FEEDING-JEVITY 1.2 @ 75ML/HR. POSITIVE PLACEMENT BY AUSCULTATION. RESIDUALS ARE 125ML. LUNG SOUNDS RHONCHI HEARD THROUGHOUT, UNLABORED BREATHING. S1S2, SINUS JENNIFER ON MONITOR. ABDOMEN SOFT AND NONTENDER, ACTIVE BOWEL SOUNDS IN ALL QUADRANTS. GOMEZ CATHETER IN PLACE, CLEAR DARK YELLOW/ALEXEI URINE NOTED. RIGHT FACE/RIGHT CHEEK HAS BRUISING NOTED, SKIN INTACT. SACRAL REDNESS NOTED, CLOSED WOUND, OPTIFOAM IN PLACE.BILATERAL SOFT WRIST RESTRAINTS IN PLACE, TEMPORARILY REMOVED FOR HEAD TO TOE ASSESSMENT, NO SIGNS OF SKIN INJURY. BED IS LOCKED AND IN LOWEST POSITION, SIDERAILS UP AND PADDED. HOB 30 DEGREES. WILL CONTINUE TO MONITOR
[2019-01-02] MEDS ORDERED: VALPROIC ACID 250 MG/5 ML UDC NG SCH (20:15)
--- NOTE | 2019-01-02 20:15 | NUR ---
PROVIDED ORAL CARE, PATIENT TOLERATED WELL, SUCTIONED ORALLY, WHITE CREAMISH SECRETIONS NOTED. PATIENT TURNED AND REPOSITIONED. WILL CONTINUE CLOSE MONITORING
--- NOTE | 2019-01-02 20:45 | NUR ---
CALLED RESIDENT DOCTOR TO CLARIFY ORDER. OK TO GIVE 1,000MG OF VALPROIC ACID, LOADING DOSE ORDER, AND OK TO GIVE SCHEDULED DOSE OF 500MG OF VALPROIC ACID. WILL CARRY OUT
--- NOTE | 2019-01-02 21:15 | NUR ---
DR. RAY AT BEDSIDE TO ASSESS PATIENT. NO NEW ORDERS AT THIS TIME
--- NOTE | 2019-01-02 22:00 | NUR ---
RELEASED RESTRAINTS TO ASSESS SKIN AND CIRCULATION, NO INJURIES NOTED. TURNED AND REPOSITIONED PATIENT, PATIENT ANOx0, UNSAFE FOR PATIENT TO RELEASE RESTRAINTS AT THIS TIME.
--- NOTE | 2019-01-02 23:40 | NUR ---
PT HAD A VERY LARGE BOWEL MOVEMENT, LOOSE/WATERY, BROWN IN COLOR, AND 2 LARGE SOLID PIECES THAT PATIENT TRYING TO FORCE OUT, STILL IMPACTED. SKIN CLEANSED AND DRIED, SACRAL AREA SLIGHTLY RED, SKIN INTACT, APPLIED HYDRAGUARD AND REPLACED OPTIFOAM. PATIENT REPOSITIONED FOR PROPER BODY ALIGNMENT.
[2019-01-03] VITALS (77 sets, daily range): BP systolic 74–134; BP diastolic 37–119
--- NOTE | 2019-01-03 00:20 | NUR ---
VAP ORAL CARE PROVIDED, ASSESS SKIN INTEGRITY BENEATH AND AROUND ETT TIES. RELEASED RESTRAINTS, AND REPOSITIONED PATIENT. NO DISTRESS NOTED
[2019-01-03] MEDS: Z-GUARD PASTE TP SCH ×2 (00:23→13:24)
--- NOTE | 2019-01-03 01:50 | NUR ---
PT HAD ANOTHER LARGE BOWEL MOVEMENT, STOOL IS LIGHT BROWN, LOOSE/LIQUID. VENT SETTINGS BEFORE-ACVC 28% FI02, TV 350, RATE 14, PEEP 5. EQUAL CHEST RISE, SR ON MONITOR. AFEBRILE. FLACC 0, WILL CONTINUE FREQUENT ROUNDING
[2019-01-03] MEDS: ALBUTEROL SULFATE/IPRATROPIU 3 ML SOL IH SCH ×6 (02:59→23:00)
--- NOTE | 2019-01-03 03:20 | NUR ---
REMOVED RIGHT HAND AND RIGHT WRIST PERIPHERAL IV's 20G. BOTH CATHETERS INTACT, SKIN CLEANED AND DRIED. PATIENT TOLERATED WELL. PT STILL ANOx0, DOES NOT FOLLOW SIMPLE COMMANDS, FLACC 0. CLOSE MONITORING IN PLACE
--- NOTE | 2019-01-03 05:00 | NUR ---
SPONGE BATH, ORAL CARE, PERINEAL/CATHETER CARE, AND SKIN CARE PROVIDED. NO SIGNS OF PRESSURE WOUND OR WORSENING SKIN BREAKDOWN. SACRUM IS SLIGHTLY BLANCHABLE RED, SKIN IS INTACT, ZGUARD APPLIED AND OPTIFOAM CHANGED. 2 PERSON ASSISTANCE NEEDED FOR SPONGE BATH. PATIENT IS ANOx0, CANNOT FOLLOW SIMPLE COMMANDS, FLACC 0, VITAL SIGNS WITHIN NORMAL LIMITS
[2019-01-03 05:17] LABS: ANION GAP 7.9 (8-16); CARBON DIOXIDE 34.1 mmol/L (21-32); CREATININE 0.4 mg/dL (0.7-1.3)
--- NOTE | 2019-01-03 06:15 | NUR ---
RESIDENT DOCTOR AT BEDSIDE TO ASSESS PATIENT. PATIENT HAD ANOTHER LARGE LOOSE BOWEL MOVEMENT. PATIENT STABLE AT THIS TIME
--- NOTE | 2019-01-03 06:30 | NUR ---
RECEIVED PT ON CARESCAPE ON DOCUMENTED SETTINGS, ALARMS ARE ON AND AUDIBLE, PTS ETT SIZE 7.5 IS SECURE ANCHOR FAST PT IN HF QUIET BS RALES HHN GIVEN I\L WITH 3 MG DUONEB, BMV HOB, VENT PLUGGED INTO RED OUTLET
--- NOTE | 2019-01-03 07:15 | NUR ---
ENDORSED PLAN OF CARE AND REPORT TO DAYSHIFT NURSE AT PATIENTS BEDSIDE. NO COMPLAINTS/DISTRESS AT THIS TIME.
--- NOTE | 2019-01-03 07:30 | NUR ---
RECEIVED PATIENT FROM PM SHIFT RN. EYES CLOSED, UNABLE TO FOLLOW COMMANDS.SINUS RHYTHM ON MONITOR. ETT TO VENT, 24 AT THE TEETH, 28%=FI02, TV 350, RATE AC=14, PEEP 5. LEFT IJ TRIPLE LUMEN INFUSING 1/2 NS @ 10ML/HR. CVP MONITORING IN PLACE. RIGHT FEMORAL ARTERIAL LINE, DRESSING DRY AND INTACT. OGT IN PLACE TO FEEDING-JEVITY 1.2 @ 75ML/HR. POSITIVE PLACEMENT CHECKED. RESIDUALS ARE 15 CC. LUNG SOUNDS RHONCHI HEARD THROUGHOUT, S1S2, ABDOMEN SOFT AND NONTENDER, ACTIVE BOWEL SOUNDS IN ALL QUADRANTS. GOMEZ CATHETER IN PLACE, CLEAR DARK YELLOW URINE NOTED. RIGHT NECK/ LOWER FACE BRUISING NOTED, SKIN INTACT. SACRAL REDNESS NOTED, CLOSED WOUND, OPTIFOAM IN PLACE.BILATERAL SOFT WRIST RESTRAINTS IN PLACE, CIRCULATION CHECKED , FINE. BED IS LOCKED AND IN LOWEST POSITION, SIDERAILS UP AND PADDED. HOB 30 DEGREES. WILL CONTINUE TO MONITOR. TEMP 95.3F
--- NOTE | 2019-01-03 08:00 | NUR ---
turned and repositioned pt. amie and oral care given. pt's temp 95.3F, warm blanket given to pt.
--- NOTE | 2019-01-03 08:24 | NUR ---
PER DR. JONES, PT. WILL NOT BE DISCHARGED THIS WEEKEND TO [facility]. CALLED [facility] SPOKE TO MJ IN ICU. WILL INFORM THEIR HYDROGRAPHY TEACHER.
[2019-01-03] MEDS: LACTULOSE 20 GM/30 ML UDC PO SCH (09:00)
[2019-01-03] MEDS: BLOOD GLUCOSE MONITORING 1 DEV DEV FS SCH ×3 (09:00→16:53)
[2019-01-03] MEDS: PRAMIPEXOLE 0.5 MG TAB PO SCH ×2 (09:00→20:25)
[2019-01-03] MEDS: SENNA 8.6 MG TAB GT SCH (09:00)
[2019-01-03] MEDS: POLYETHYLENE GLYCOL 17 GM/PKT GT SCH (09:00)
[2019-01-03] MEDS: VALPROIC ACID 250 MG/5 ML UDC NG SCH ×2 (09:18→20:24)
[2019-01-03] MEDS: PHENYTOIN 100 MG/4 ML UDC NG SCH ×2 (09:19→20:24)
[2019-01-03] MEDS: lamoTRIgine 25 MG TAB PO SCH (09:19)
[2019-01-03] MEDS: CALCIUM CARB/VIT-D 500 MG/200 IU 1 TAB PO SCH ×2 (09:19→20:25)
[2019-01-03] MEDS: FERROUS SULFATE 300 MG/5 ML UDC GT SCH ×2 (09:19→20:23)
[2019-01-03] MEDS: PANTOPRAZOLE 40 MG INJ VIAL IVP SCH ×2 (09:19→20:23)
[2019-01-03] MEDS: TAMSULOSIN 0.4 MG CAP PO SCH (09:19)
[2019-01-03] MEDS: OFLOXACIN 0.3% OP 5 ML BTL OP SCH ×4 (09:22→20:29)
[2019-01-03] MEDS: POLYVINYL ALCOHOL 1.4% OP 15 ML SOL OP SCH (09:23)
[2019-01-03] MEDS: LORazepam 2 MG/ML VIAL IVP PRN (09:24)
[2019-01-03] MEDS: BENZTROPINE 1 MG TAB PO SCH ×2 (09:25→20:25)
[2019-01-03] MEDS: ARIPiprazole 10 MG TAB PO SCH (09:26)
--- NOTE | 2019-01-03 10:15 | NUR ---
SUCTIONED PT WITH SOME CREAMY SECRETION. NO S/S OF RESPIRATORY DISTRESS NOTED.
[2019-01-03 10:20] LABS: EOSINOPHILS % (AUTO) 0.1 % (0.0-4.0); HEMATOCRIT 30.8 % (36-52); HEMOGLOBIN 10.4 g/dL (12.0-18.0); LYMPHOCYTES # (AUTO) 0.6 K/uL (2.0-11.5); LYMPHOCYTES % (AUTO) 6.9 % (20.5-51.1); MEAN CORPUSCULAR HEMOGLOBIN 33 pg (27-31); MEAN CORPUSCULAR HGB CONC 34 g/dL (33-37); MEAN CORPUSCULAR VOLUME 96.7 fL (80-94); MONOCYTES # (AUTO) 0.9 K/uL (0.8-1.0); MONOCYTES % (AUTO) 10.6 % (1.7-9.3); NEUTROPHILS # (AUTO) 6.6 K/uL (1.8-7.7); NEUTROPHILS % (AUTO) 82.4 % (42.2-75.2); PLATELET COUNT (AUTO) 144 K/uL (140-450); RED BLOOD CELL COUNT(AUTO) 3.19 MIL/uL (4.20-6.10); RED CELL DISTRIBUTION WIDTH 14.2 % (11.6-13.7); WHITE BLOOD COUNT (AUTO) 8.1 K/uL (4.8-10.8)
[2019-01-03 10:38] LABS: ANION GAP 6.5 (8-16); CARBON DIOXIDE 35.7 mmol/L (21-32); CREATININE 0.4 mg/dL (0.7-1.3); POTASSIUM 4.2 mmol/L (3.5-5.1)
[2019-01-03 10:49] LABS: PROTHROMBIN TIME 10.2 secs (10.8-13.4)
--- NOTE | 2019-01-03 11:34 | NUR ---
01/03/19 RD FOLLOW UP COMPLETED PLEASE REFER TO NUTRITION PROGRESS NOTE UNDER CARE ACTIVITY FOR ESTIMATED NUTRITION NEEDS. RD RECOMMENDATIONS: 1. RECOMMEND CONTINUE JEVITY AT 75ML/HR. FWF:120ML Q 4HR. THIS PROVIDES 2160KCAL, 108G PROTEIN AND 2520ML TOTAL FLUID DAILY. THIS MEETS >75% ESTIMATED NEEDS. 2. IF PT IS EXTUBATED, RECOMMEND SWALLOW EVALUTION. RD WILL F/U 2-3 DAYS; HIGH RISK. CARMELA VICENTE, RD
[2019-01-03 11:39] LABS: MAGNESIUM 2.2 mg/dL (1.8-2.4); PHOSPHORUS 4.3 mg/dL (2.5-4.9)
--- NOTE | 2019-01-03 12:00 | NUR ---
PT OFF WARM BLANKET. DR. KNOTT MADE AWARE PT NO INSULIN COVERAGE AND PT NO HX DM.
[2019-01-03] MEDS: DOCUSATE 100 MG/10 ML UDC NG SCH (16:26)
--- NOTE | 2019-01-03 16:40 | NUR ---
TURNED AND REPOSITIONED PT. PT HAS DIARRHEA, CLEANED PT. PT TOLERATED WELL
[2019-01-03] MEDS: NOREPINEPHRINE 4 MG in DEXTROSE 5% 250 ML IV PRN (16:56)
[2019-01-03] MEDS ORDERED: ACETAMINOPHEN 325 MG TAB ONE (17:27)
--- NOTE | 2019-01-03 19:10 | NUR ---
CHANGE OF SHIFT REPORT GIVEN BY DAY NURSE AT BEDSIDE. PATIENT LYING IN BED. SPONTANEOUS EYE OPENING. RESPONDS TO NAME AND PAIN. ETT TO VENT 7.5 TUBING 24 AT LIP. OGT CONNECTED TO JEVITY 1.2 RUNNING 75 CC/HR AND WATER FLUSH OF 120 EVERY 4 HOURS. PERRL BILATERALLY. PATIENT ON LEVOPHED 5.62 ML/HR RUNNING THROUGH LEFT IJ TRIPLE LUMEN WELL HALF NS 10 CC/HR. PT ON CVP MONITORING. ZEROED DURING SHIFT. L AC PRESENT BUT NOT BEING USED. R FEMORAL ARTERIAL LINE MONITORING BP DAY NURSE SATES NOT ACCURATE. WILL CONTINUE TO MONITOR. DRY WEIGHT 73 KG. LUNG SOUNDS CLEAR. RESPIRATIONS BILATERAL AND EQUAL. HR REGULAR AND WNL. BOWEL SOUNDS ACTIVE IN ALL 4 QUADRANTS. HEEL PROTECTORS ON. WILL FOLLOW UP WITH WOUND CARE NOTES. SAFETY SEIZURE RAILS ON. BED IN LOWEST POSITION. CONTRACTURES PRESENT. SAFETY MEASURES IN PLACE. WARMING BLANKET PRESENT BUT NOT ON. NO S/S OF DISTRESS NOTED AT THIS TIME. WILL CONTINUE TO MONITOR.
--- NOTE | 2019-01-03 19:12 | NUR ---
REPORT GIVEN TO PM NURSE.
--- NOTE | 2019-01-03 19:13 | NUR ---
RECEIVED INTUBATED PT WITH A 7.5 ETT SECURED @26TEETH/GUMS ON VENT. SETTINGS AC/VC 14 VT 350, PEEP 5 AND FIO2 28. VENT ALARMS ON AND AUDIBLE. VENT IS PLUGGED INTO A RED OUTLET. AMBU BAG AT BEDSIDE. WILL CONTINUE TO MONITOR.
--- NOTE | 2019-01-03 19:17 | NUR ---
RT AT PATIENT BEDSIDE.
--- NOTE | 2019-01-03 19:20 | NUR ---
GAVE ATIVAN PRN FOR RESTLESSNESS AND TACHYPNEA. WILL CONTINUE TO MONITOR
[2019-01-03] MEDS: ACETAMINOPHEN 160 MG/5 ML UDC NG PRN (20:29)
--- NOTE | 2019-01-03 21:30 | NUR ---
DR. RAY PRESENT AT BEDSIDE. UPDATED CORY ON PATIENT STATUS. DR. RAY ASSESSED SPOT ON TOP OF PENIS. STATES APPEARS TO BE AN OLD WART. NO S/S OF INFECTION. WILL CONTINUE TO MONITOR. HALF SIZE OF DIME NOTED SIZE.
--- NOTE | 2019-01-03 22:00 | NUR ---
INCREASED PATIENT LEVOPHED TO KEEP SBP ABOVE 90. INCREASED TO 13.12 ML/HR. PER PROTOCOL. PATIENT SHOWING NO S/S OF DISTRESS. WILL CONTINUE TO MONITOR.
--- NOTE | 2019-01-03 23:00 | NUR ---
PATIENT BP ABOVE 90 FOR SBP. PATIENT VSS. NO S/S OF DISTRESS NOTED. WILL CONTINUE TO MONITOR.
--- NOTE | 2019-01-03 23:15 | NUR ---
RAISED PATIENTS TIDAL VOLUME TO 450 BASED ON PATIENTS IBW. PATIENT TOLERATING. INFORMED ICU NURSES OF CHANGE. WILL CONTINUE TO MONITOR.
[2019-01-04] VITALS (108 sets, daily range): BP systolic 85–143; BP diastolic 40–99
[2019-01-04] MEDS: NACL 0.45% 1,000 ML IV SCH ×2 (00:50→05:22)
[2019-01-04] MEDS: Z-GUARD PASTE TP SCH ×2 (00:54→12:04)
--- NOTE | 2019-01-04 01:00 | NUR ---
PATIENT HAD BM. CLEANED WITH 2ND NURSE. VSS. PATIENT SHOWING NO S/S OF DISTRESS. DR. RAY AWARE OF BMOVEMENTS.
--- NOTE | 2019-01-04 02:27 | NUR ---
INFORMED DR. WALDRON OF TIDAL VOLUME CHANGE TO 450. DR.ATCKISON HERRERA WITH CHANGE
[2019-01-04] MEDS: ALBUTEROL SULFATE/IPRATROPIU 3 ML SOL IH SCH ×6 (03:19→23:07)
--- NOTE | 2019-01-04 04:35 | NUR ---
CLEANED PATIENT. BM DIARRHEA. WATERY CONSISTENCY. PATIENT TOLERATED WELL. VSS. WILL CONTINUE TO MONITOR.
[2019-01-04 05:08] LABS: ANION GAP 5.2 (8-16); CREATININE 0.4 mg/dL (0.7-1.3); POTASSIUM 4.2 mmol/L (3.5-5.1)
[2019-01-04 05:13] LABS: MAGNESIUM 2.2 mg/dL (1.8-2.4); PHOSPHORUS 3.4 mg/dL (2.5-4.9)
[2019-01-04 05:57] LABS: BASOPHILS % (AUTO) 0.2 % (0.0-2.0); EOSINOPHILS % (AUTO) 0.5 % (0.0-4.0); HEMATOCRIT 28.4 % (36-52); HEMOGLOBIN 9.5 g/dL (12.0-18.0); LYMPHOCYTES # (AUTO) 1.3 K/uL (2.0-11.5); LYMPHOCYTES % (AUTO) 17.4 % (20.5-51.1); MEAN CORPUSCULAR HEMOGLOBIN 33 pg (27-31); MEAN CORPUSCULAR HGB CONC 34 g/dL (33-37); MEAN CORPUSCULAR VOLUME 96.9 fL (80-94); MONOCYTES % (AUTO) 13.6 % (1.7-9.3); NEUTROPHILS # (AUTO) 5.2 K/uL (1.8-7.7); NEUTROPHILS % (AUTO) 68.3 % (42.2-75.2); PLATELET COUNT (AUTO) 159 K/uL (140-450); RED BLOOD CELL COUNT(AUTO) 2.93 MIL/uL (4.20-6.10); RED CELL DISTRIBUTION WIDTH 14.1 % (11.6-13.7); WHITE BLOOD COUNT (AUTO) 7.6 K/uL (4.8-10.8)
--- NOTE | 2019-01-04 05:57 | NUR ---
BLOOD TINGED SECRETIONS. CHANGED PATIENTS TIDAL VOLUME BACK TO 350
--- NOTE | 2019-01-04 06:11 | NUR ---
REC'D PT ON CARESCAPE VENT SETTINGS AC 14 VT 350 PEEP 5 FIO2 28% ALARMS ON AND AUDIBLE AND AMBU BAG AT SIDE OF VENT AND VENT IS PLUGGED INTO RED OUTLET, I\L TX GIVEN WITH DUONEB 3ML WITH NO ADVERSE REACTION POST TX B\S ARE RHONCHI BILATERALLY SXN PT MODERATE AMT OF FROTHY WHITE SECRETIONS, PT IS ORALLY INTUBATED WITH 7.5 ET TUBE SECURED WITH ANCHOR FAST AT 24 CM MIDLINE AND PT IS RESTING
--- NOTE | 2019-01-04 06:14 | NUR ---
RESIDENT AT PATIENT BEDSIDE. UPDATED ON STATUS. NOTIFIED OF WATERY STOOLS. WILL FOLLOW UP IF ANY CHANGES. WILL CONTINUE TO MONITOR.
--- NOTE | 2019-01-04 06:45 | NUR ---
PATIENT LYING IN BED. NO S/S OF DISTRESS. VSS.
--- NOTE | 2019-01-04 07:30 | NUR ---
RECEIVED BEDSIDE REPORT FROM GEOTECHNICAL INTERN RN. PT IS NONVERBAL, EYES OPEN SPONTANEOUSLY, RESPONDS TO PAIN, DOES NOT FOLLOW SIMPLE COMMANDS OR MAKE NEEDS KNOWN. AFEBRILE, FLACC 0. NORMAL SINUS RHYTHM ON MONITOR. PT IS ETT TO VENT W/ SETTINGS: A/C VC FIO2 28%, VT 350, RR 14, PEEP 5. LUNGS SOUND CLEAR BILATERALLY, NO SIGNS OF RESPIRATORY DISTRESS NOTED. BREATHING EVEN AND UNLABORED. ABDOMEN SOFT, NONTENDER W/ ACTIVE BOWEL SOUNDS. OGT IN PLACE, PLACEMENT CONFIRMED, NO RESIDUALS NOTED. PT IS ON TUBE FEEDING JEVITY 1.2 AT 75 ML/HR W/ WATER FLUSH 120 ML Q4H. CENTRAL LINE TO LEFT IJ ASYMPTOMATIC, PATENT AND INTACT, RUNNING 1/2 NS AT 10 ML/HR AND LEVOPHED DRIP AT 3.5 MCG/MIN (13.12 ML/HR), CVP: 5. ART LINE IN PLACE TO RIGHT FEMORAL, DRESSING DRY AND INTACT. GOMEZ CATHETER IN PLACE, DRAINING CLEAR DARK YELLOW URINE VIA GRAVIRY. BRUISING NOTED TO RIGHT UPPER NECK AREA, SKIN INTACT, DRY AND WARM TO TOUCH. OPTIFOAM IN PLACE TO SACRAL AREA, SACRAL REDNESS NOTED.BILATERAL SOFT WRIST RESTRAINTS IN PLACE, GOOD CIRCULATION, NO SKIN BREAKDOWN NOTED. HOB 30 DEGREES, BED IN LOWEST POSITION LOCKED, CALL LIGHT WITHIN REACH. NO SIGNS OF DISTRESS NOTED AT THIS TIME. WILL CONTINUE TO MONITOR.
--- NOTE | 2019-01-04 08:00 | NUR ---
DR. JONES AND RESIDENT GROUP IN TO SEE PT. WILL FOLLOW UP ON ORDERS.
[2019-01-04] MEDS: SENNA 8.6 MG TAB GT SCH (08:16)
[2019-01-04] MEDS: POLYETHYLENE GLYCOL 17 GM/PKT GT SCH (08:16)
[2019-01-04] MEDS: LACTULOSE 20 GM/30 ML UDC PO SCH (08:17)
--- NOTE | 2019-01-04 08:24 | NUR ---
PT PLACED ON CPAP 5 PS 10
[2019-01-04] MEDS: FERROUS SULFATE 300 MG/5 ML UDC GT SCH ×2 (08:32→21:05)
[2019-01-04] MEDS: VALPROIC ACID 250 MG/5 ML UDC NG SCH ×2 (08:32→21:05)
[2019-01-04] MEDS: CALCIUM CARB/VIT-D 500 MG/200 IU 1 TAB PO SCH ×2 (08:32→21:05)
[2019-01-04] MEDS: lamoTRIgine 25 MG TAB PO SCH (08:32)
[2019-01-04] MEDS: TAMSULOSIN 0.4 MG CAP PO SCH (08:33)
[2019-01-04] MEDS: PANTOPRAZOLE 40 MG INJ VIAL IVP SCH ×2 (08:33→21:06)
[2019-01-04] MEDS: PHENYTOIN 100 MG/4 ML UDC NG SCH ×2 (08:34→21:05)
[2019-01-04] MEDS: ARIPiprazole 10 MG TAB PO SCH (08:34)
[2019-01-04] MEDS: BENZTROPINE 1 MG TAB PO SCH ×2 (08:34→21:04)
[2019-01-04] MEDS: POLYVINYL ALCOHOL 1.4% OP 15 ML SOL OP SCH (08:34)
[2019-01-04] MEDS: OFLOXACIN 0.3% OP 5 ML BTL OP SCH ×4 (08:35→21:00)
[2019-01-04] MEDS: PRAMIPEXOLE 0.5 MG TAB PO SCH ×2 (08:42→21:03)
[2019-01-04] MEDS: BLOOD GLUCOSE MONITORING 1 DEV DEV FS SCH ×3 (08:42→16:31)
--- NOTE | 2019-01-04 09:00 | NUR ---
MEDICATIONS ADMINISTERED ORDERED. PT TOLERATED WELL.
--- NOTE | 2019-01-04 10:30 | NUR ---
DR. DESHPANDE IN TO SEE PT, MADE AWARE THAT PT IS CURRENTLY ON CPAP AND ALSO MADE AWARE OF INACCURATE READING OF ARTERIAL LINE. OK TO DISCONTINUE ARTERIAL LINE PER DR. DESHPANDE. WILL FOLLOW UP ON ANY NEW ORDERS.
[2019-01-04] MEDS ORDERED: FUROSEMIDE 20 MG/2 ML VIAL IVP SCH (11:00)
--- NOTE | 2019-01-04 11:00 | NUR ---
PER RT, VENT AUTOMATICALLY SWITCHED BACK TO AC MODE. DR. KNOTT MADE AWARE.
--- NOTE | 2019-01-04 11:05 | NUR ---
PT'S SISTER AND CAREGIVER AT BEDSIDE. UPDATES GIVEN ON PT'S CONDITION AND NEEDS WELL ATTENDED. NO S/SX OF DISTRESS NOTED AT THIS TIME. ALL SAFETY PRECAUTIONS IN PLACE. WILL CONTINUE TO MONITOR.
[2019-01-04] MEDS: VANCOMYCIN 500 MG VIAL PO SCH ×2 (12:03→17:52)
--- NOTE | 2019-01-04 12:05 | NUR ---
VAP ORAL CARE GIVEN. TURNED AND REPOSITIONED FOR COMFORT AND PRESSURE OFF LOAD. TOLERATED WELL.
[2019-01-04] MEDS: NOREPINEPHRINE 4 MG in DEXTROSE 5% 250 ML IV PRN (14:02)
--- NOTE | 2019-01-04 14:02 | NUR ---
PT HAD MODERATE AMOUNT OF LIQUID BM. CLEANED AND REPOSITIONED. TOLERATED WELL. VSS. SAFETY PRECAUTIONS IN PLACE.
--- NOTE | 2019-01-04 15:30 | NUR ---
ARTERIAL LINE DISCONTINUED PER ORDER. PRESSURE APPLIED ON THE SITE. NO BLEEDING NOTED. WILL CONTINUE TO MONITOR.
[2019-01-04] MEDS: DOCUSATE 100 MG/10 ML UDC NG SCH (16:21)
[2019-01-04] MEDS: MORPHINE SULFATE 2 MG/ML SYR IVP PRN (16:39)
--- NOTE | 2019-01-04 17:39 | NUR ---
DR. RAY IN TO SEE PT. UPDATES GIVEN ON PT'S CONDITION. WILL FOLLOW UP ON ORDERS.
--- NOTE | 2019-01-04 18:07 | NUR ---
RESIDENT PHYSICIAN DR. ELKINS IN TO SEE AND EXAMINE PT. UPDATES GIVEN ON PT'S CONDITION. WILL FOLLOW UP ON ORDERS.
--- NOTE | 2019-01-04 19:11 | NUR ---
Received pt on vent support at documented settings, suctioned moderate amount of thick white secretions, hhn tx given, tolerated well, 7.5 ETT secured at 24 cm at the lip, alarms set and audible, ambu bag at bedside, vent plugged into red outlet, cont pulse ox on, ventilator wiped down, will cont to monitor.
--- NOTE | 2019-01-04 19:15 | NUR ---
RECEIVED CHANGE OF SHIFT REPORT FROM AM NURSE. PATIENT IS SEDATED AND INTUBATED - ETT SIZE 7.5 TO VENT AND 27 AT LIP LINE . ETT TO VENT WITH SETTINGS: FIO2 28%, AC 14, VT 350, FLOW 40 L/MIN, AND PEEP 5. PERRL IS PRESENT WITH PUPILS BILATERAL SIZE 3MM. SKIN IS WARM, DRY, AND INTACT EXCEPT FOR SACRAL REDNESS/DERMATITIS. 2+ PITTING EDEMA PRESENT IN BILATERAL HANDS AND BILATERAL FEET, ALONG WITH SWOLLEN SCROTUM. PULSES 2+ BILATERAL UPPER AND LOWER EXTREMITIES. LUNG SOUNDS HAVE CRACKLES THROUGHOUT, BUT MORE SO ON THE BILATERAL UPPER LOBES. PATIENT IS CURRENTLY TACHYPNIC WITH AN RR OF 30 - WILL GIVE ATIVAN PRN PRESCRIBED. NSR ON AD WRITER. S1 AND S2 SOUND PRESENT. PATIENT HAS LEFT IJ TRIPLE LUMEN CENTRAL LINE WITH ALL LUMENS PATENT AND SITE/DRESSING IS DRY/INTACT. RIGHT IJ HAS CVP MONITORING WHICH CURRENTLY READS 5 AFTER HAVING BEEN ZEROED AND FLUSHED. NORMAL SALINE CURRENTLY RUNNING AT SML/H KVO. LEVOPHED IS RUNNING AT 3.5 MCG/MIN. PATIENT HAS OG TUBE IN PLACE WITH 60ML GASTRIC RESIDUALS AT THIS TIME, AND TUBE IS PATENT AND POSITIVE FOR PLACEMENT. FEEDING FORMULA IS JEVITY 1.2 RUNNING AT 75ML/H WITH WATER FLUSH 120CC Q4H. GOMEZ CATHETER IN PLACE AND URINE IS ALEXEI AND CLEAR. 2 LARGE SOFT/LIQUID BOWEL MOVEMENT DURING AM SHIFT BUT BUT NONE AT THIS TIME. BED LEFT IN LOW SEMI FOWLERS POSITION, SIDE RAILS UPX2 WITH CALL LIGHT WITHIN REACH. WILL CONTINUE TO MONITOR.
--- NOTE | 2019-01-04 19:25 | NUR ---
REPORT GIVEN TO HEALTHCARE LIAISON RN FOR CONTINUITY OF CARE. NO SIGNS OF ACUTE DISTRESS NOTED AT THIS TIME.
--- NOTE | 2019-01-04 21:10 | NUR ---
GAVE SCHEDULED MEDS, PERFORMED ORAL CARE, AND REPOSITIONED PATIENT. PATIENT HAD A BOWEL MOVEMENT - CLEANED HIM AND CHANGED CHUCKS AND LINENS. WILL CONTINUE TO MONITOR
[2019-01-05] VITALS (103 sets, daily range): BP systolic 61–161; BP diastolic 31–101
[2019-01-05] MEDS: Z-GUARD PASTE TP SCH ×2 (00:09→12:24)
[2019-01-05] MEDS: LORazepam 2 MG/ML VIAL IVP PRN (00:21)
--- NOTE | 2019-01-05 00:21 | NUR ---
GAVE 2MG ATIVAN IV PUSH PRN FOR AGITATION/TACHYPNEA. PATIENT TOLERATED MEDICATION WELL. WILL CONTINUE TO MONITOR.
[2019-01-05] MEDS: VANCOMYCIN 500 MG VIAL PO SCH ×4 (00:22→16:57)
[2019-01-05] MEDS: MORPHINE SULFATE 2 MG/ML SYR IVP PRN (01:31)
--- NOTE | 2019-01-05 01:31 | NUR ---
GAVE 2MG MORPHINE IV PUSH PRN FOR AGITATION/TACHYPNEA. PATIENT TOLERATED MEDICATION WELL. WILL CONTINUE TO MONITOR. Addendum: 01/05/19 at 0315 by Steven Lin RN FLACC 7 (PATIENT BITING ETT AND OG TUBE). WILL REASSESS PAIN IN ONE HOUR
[2019-01-05] MEDS: ALBUTEROL SULFATE/IPRATROPIU 3 ML SOL IH SCH ×6 (02:54→23:25)
[2019-01-05 06:26] LABS: ANION GAP 3.8 (8-16); CARBON DIOXIDE 35.9 mmol/L (21-32); CREATININE 0.4 mg/dL (0.7-1.3); POTASSIUM 3.7 mmol/L (3.5-5.1)
[2019-01-05 06:33] LABS: MAGNESIUM 1.9 mg/dL (1.8-2.4); PHOSPHORUS 3.4 mg/dL (2.5-4.9)
[2019-01-05 06:35] LABS: BASOPHILS % (AUTO) 0.1 % (0.0-2.0); EOSINOPHILS # (AUTO) 0.1 K/uL (0-0.4); EOSINOPHILS % (AUTO) 0.8 % (0.0-4.0); HEMATOCRIT 29.4 % (36-52); HEMOGLOBIN 9.8 g/dL (12.0-18.0); LYMPHOCYTES # (AUTO) 1.4 K/uL (2.0-11.5); LYMPHOCYTES % (AUTO) 13.5 % (20.5-51.1); MEAN CORPUSCULAR HEMOGLOBIN 32 pg (27-31); MEAN CORPUSCULAR HGB CONC 33 g/dL (33-37); MEAN CORPUSCULAR VOLUME 96.5 fL (80-94); MONOCYTES % (AUTO) 9.2 % (1.7-9.3); NEUTROPHILS % (AUTO) 76.4 % (42.2-75.2); PLATELET COUNT (AUTO) 183 K/uL (140-450); RED BLOOD CELL COUNT(AUTO) 3.04 MIL/uL (4.20-6.10); RED CELL DISTRIBUTION WIDTH 13.7 % (11.6-13.7); WHITE BLOOD COUNT (AUTO) 10.4 K/uL (4.8-10.8)
--- NOTE | 2019-01-05 06:50 | NUR ---
RECEIVED PT ON CARESCAPE ON DOCUMENTED SETTINGS, ALARMS ARE ON AND FUNCTIONAL, PTS ETT SIZE 7.5 IS SECURE 24CM ANCHOR FAST IN PLACE, PT IN HF QUIET, BS GRECIA HHN GIVEN I\L WITH 3 MG DUONEB, BMV HOB, VENT PLUGGED INTO RED OUTLET, WILL CONTINUE TO MONITOR
--- NOTE | 2019-01-05 07:30 | NUR ---
RECEIVED BEDSIDE REPORT FROM NON CDL DRIVER NURSE, PT OPEN EYES BY CALLING HIS NAME, DROWSY, APHASIC, FOLLOW COMMANDS SOMETIMES, VSS, FLACC 0, ETT TO VENT WITH AC FIO2 28, VT 350, R 14, PEEP 5, NO DISTRESS, FINE CRACKLES SOUNDS DIANA. SR ON SPIRAL BINDER, CAP REFILL <2 SEC, SOFT ABDOMEN WITH ACTIVE BOWEL SOUNDS, OGT IN PLACE, FEEDING WITH JEVITY 1.2 AT 75 ML/HR, 50 ML RESIDUALS, GOMEZ CATHETER IN PLACE, CLEAR YELLOW URINE VIA GRAVITY, SEVERE WEAKNESS TO BLE, SOFT RESTRAIN ON DIANA. WRIST FOR SAFETY, SKIN IS WARM AND DRY TO TOUCH, NO OPEN WOUND PRESENT, CENTRAL LINE TO LIJ, TLC, RUNNING LEVOPHED AT 2 MCG/MIN, ON CVP MONITOR AT 1, HOB ELEVATED TO 30 DEGREES, ORAL CARE PROVIDED, POSITION CHANGED FOR OFF LOAD PRESSURE, SAFETY MEASURE AND SEIZURE PRECAUTION IN PLACE, WILL CONTINUE TO MONITOR.
--- NOTE | 2019-01-05 08:30 | NUR ---
CENTRAL LINE TO LIJ, DRESSING PARTIALLY OPEN, CHANGED NEW DRESSING AND PROVIDED CENTRAL LINE CARE WITH STERIL TECHNIQUE, PATIENT TOLERATED WELL.
[2019-01-05] MEDS ORDERED: FUROSEMIDE 20 MG/2 ML VIAL IVP SCH (09:00)
--- NOTE | 2019-01-05 09:14 | NUR ---
NO SBT TRIAL DUE TO LOW BP
[2019-01-05] MEDS: PHENYTOIN 100 MG/4 ML UDC NG SCH ×2 (09:25→21:57)
[2019-01-05] MEDS: PANTOPRAZOLE 40 MG INJ VIAL IVP SCH ×2 (09:25→21:57)
[2019-01-05] MEDS: TAMSULOSIN 0.4 MG CAP PO SCH (09:25)
[2019-01-05] MEDS: VALPROIC ACID 250 MG/5 ML UDC NG SCH ×2 (09:26→21:57)
[2019-01-05] MEDS: CALCIUM CARB/VIT-D 500 MG/200 IU 1 TAB PO SCH ×2 (09:26→21:58)
[2019-01-05] MEDS: ARIPiprazole 10 MG TAB PO SCH (09:26)
[2019-01-05] MEDS: SENNA 8.6 MG TAB GT SCH (09:26)
[2019-01-05] MEDS: FERROUS SULFATE 300 MG/5 ML UDC GT SCH ×2 (09:26→21:58)
[2019-01-05] MEDS: LACTULOSE 20 GM/30 ML UDC PO SCH (09:26)
[2019-01-05] MEDS: BENZTROPINE 1 MG TAB PO SCH ×2 (09:27→21:56)
[2019-01-05] MEDS: PRAMIPEXOLE 0.5 MG TAB PO SCH ×2 (09:27→21:56)
[2019-01-05] MEDS: POLYETHYLENE GLYCOL 17 GM/PKT GT SCH (09:27)
[2019-01-05] MEDS: lamoTRIgine 25 MG TAB PO SCH (09:27)
[2019-01-05] MEDS: OFLOXACIN 0.3% OP 5 ML BTL OP SCH ×3 (09:28→16:52)
[2019-01-05] MEDS: POLYVINYL ALCOHOL 1.4% OP 15 ML SOL OP SCH (09:28)
--- NOTE | 2019-01-05 09:30 | NUR ---
SCHEDULED MEDICATION GIVEN, PATIENT TOLERATED WELL.
[2019-01-05] MEDS: BLOOD GLUCOSE MONITORING 1 DEV DEV FS SCH ×3 (09:44→16:51)
--- NOTE | 2019-01-05 10:00 | NUR ---
PT IS ASLEEP IN BED, NO S/S OF DISTRESS, VSS, FLACC 0, POSITION CHANGED FOR OFF LOAD PRESSURE.
--- NOTE | 2019-01-05 10:31 | NUR ---
SCREEN FOR LOW MICHAEL SCALE AT RISK, CONTINUE TO FOLLOW PRESSURE ULCER PREVENTION INTERVENTIONS. -TURN AND REPOSITION PATIENT Q 2H -ASSESS AND MONITOR SKIN CONDITION DURING POSITION CHANGE -OFFLOAD BILATERAL HEELS BY PLACING PILLOWS UNDER CALVES AT ALL TIMES, UNLESS OTHERWISE CONTRAINDICATED -PRESSURE REDISTRIBUTION BY PLACING PILLOWS AND OFFLOADING SACRALCOCCYX -KEEP SKIN CLEAN AND DRY AT ALL TIMES.
--- NOTE | 2019-01-05 12:00 | NUR ---
NO CHANGE OF CONDITION, VSS, FLACC 0, ORAL CARE PROVIDED, POSITION CHANGED FOR OFF LOAD PRESSURE.
[2019-01-05] MEDS: NOREPINEPHRINE 4 MG in DEXTROSE 5% 250 ML IV PRN (13:40)
--- NOTE | 2019-01-05 14:00 | NUR ---
NO S/S OF DISTRESS, VSS, FLACC 0, POSITION CHANGED FOR OFF LOAD PRESSURE.
--- NOTE | 2019-01-05 14:28 | NUR ---
PER RADIOLOGY REPORT, PT'S ETT NEED TO BE PULL OUT FOR 3-4 CM DUE TO TOO FAR INSIDE, RT VICKY MADE AWARE.
--- NOTE | 2019-01-05 14:55 | NUR ---
DR. DONNELLY CAME IN TO SEE PATIENT AT BEDSIDE, UPDATED PATIENT'S CONDITION, WILL FOLLOW UP WITH NEW ORDERS.
--- NOTE | 2019-01-05 15:10 | NUR ---
EET PULLED OUT [address] JERAMY DANIELS FAST PLACED CXR ORDERED Addendum: 01/05/19 at 1537 by Kelly Tang RT DR DONNELLY
--- NOTE | 2019-01-05 15:37 | NUR ---
PT PLACED ON SBT PER ORDER DR DONNELLY [id number] PT FAILED LOW VT HIGH RR NIF -8 LOW BP
--- NOTE | 2019-01-05 16:00 | NUR ---
PM CARE AND ORAL CARE PROVIDED, GOMEZ CARE DONE, POSITION CHANGED FOR OFF LOAD PRESSURE, PT TOLERATED WELL, VSS, FLACC 0
[2019-01-05] MEDS: DOCUSATE 100 MG/10 ML UDC NG SCH (16:51)
--- NOTE | 2019-01-05 18:00 | NUR ---
NO CHANGE OF CONDITION, VSS, FLACC 0, POSITION CHANGED FOR OFF LOAD PRESSURE.
[2019-01-05] MEDS: MIDODRINE 5 MG TAB PO SCH (18:06)
--- NOTE | 2019-01-05 19:10 | NUR ---
RECEIVED REPORT FROM DAYSHIFT NURSE AT PATIENTS BEDSIDE. NO DISTRESS NOTED AT THIS TIME, WILL FOLLOWUP CARE.
--- NOTE | 2019-01-05 19:10 | NUR ---
REPORT GIVEN TO STAFF SOFTWARE ENGINEER NURSE AT BEDSIDE FOR CONTINUE OF CARE, PT IS IN STABLE CONDITION.
--- NOTE | 2019-01-05 19:25 | NUR ---
RECEIVED PATIENT RESTING WELL IN BED, EYES CLOSED, CANNOT FOLLOW COMMANDS, OPENS EYES TO LIGHT PAIN. ANOx0, EYES REACTIVE TO LIGHT, PERRL 3MM. LEFT IJ CENTRAL LINE IN PLACE WITH NS INFUSING AT 10 ML/HR, AND LEVOPHED AT 2 MCG/KG/MIN (7.5 ML/HR) AND CVP MONITORING, ZERO'D. ETT TO VENT, ACVC 28% FI02, TV 350, RATE 14, PEEP 5, INCREASED RESPIRATIONS-30/MIN ON MONITOR, LUNG SOUNDS RHONCHI ON UPPER LOBES. S1S2, SR ON MONITOR. OGT IN PLACE TO FEEDING-JEVITY 1.2 @ 75ML/HR. PLACEMENT CONFIRMED VIA AUSCULTATION, RESIDUALS <5ML. ABDOMEN SOFT AND NONTENDER, ACTIVE BOWEL SOUNDS. GOMEZ CATHETER IN PLACE, CLEAR AND DARK YELLOW IN COLOR NOTED. HEEL PROTECTORS IN PLACE, SKIN WARM DRY AND INTACT. FLACC 0. BILATERAL SOFT WRIST RESTAINTS IN PLACE, SKIN ASSESSED AND NO SIGNS OF INJURY, CAP REFILL <3 SECONDS. HOB 30 DEGREES,SIDERAILS UP AND PADDED, BED LOCKED AND IN LOW POSITION. WILL CONTINUE CLOSE MONITORING
--- NOTE | 2019-01-05 19:37 | NUR ---
RECEIVED PATIENT 7.5 ETT TO MECHANICAL VENTILATOR AT SETTINGS: AC/VC 350, 14, +5, 28%. VENT CHECK DONE. VENT ALARMS ON AND AUDIBLE. VENT PLUGGED INTO CORRECT OUTLET AND WHEELS LOCKED. AMBU BAG AT BEDSIDE. AIRWAY SECURE AND PATENT. SUCTIONED LARGE AMOUNT OF THICK, CREAMY, YELLOW/PINK TINGED SECRETIONS. SCHEDULED BREATHING TREATMENT ADMINISTERED. TOLERATED TX WELL WITHOUT ADVERSE SIDE EFFECTS. ORAL CARE DONE. NO ACUTE RESPIRATORY DISTRESS NOTED AT THIS TIME. WILL CONTINUE TO MONITOR.
--- NOTE | 2019-01-05 21:30 | NUR ---
VAP ORAL CARE PROVIDED, PATIENT TOLERATED WELL, SUCTIONED ORALLY, CLEAR SECRETIONS NOTED. TURNED AND REPOSITIONED PATIENT. NO SIGNS OF DISTRESS AT THIS TIME
--- NOTE | 2019-01-05 22:30 | NUR ---
IN TO ASSESS PATIENT, NO NEW ORDERS AT THIS TIME
[2019-01-06] VITALS (107 sets, daily range): BP systolic 83–144; BP diastolic 42–107
--- NOTE | 2019-01-06 | NUR ---
VAP ORAL CARE PROVIDED, PATIENT TOLERATED WELL, LARGE AMOUNT OF SECRETIONS FROM MOUTH SUCTIONED. CLEAR TO WHITE SECRETIONS NOTED. PATIENT TURNED AND REPOSITIONED. NO DISTRESS NOTED AT THIS TIME
[2019-01-06] MEDS: VANCOMYCIN 500 MG VIAL PO SCH ×4 (00:55→18:02)
--- NOTE | 2019-01-06 01:15 | NUR ---
PATIENT IN BED, EYES CLOSED, ANOX0, PUPILS REACTIVE TO LIGHT, FLACC 0. EQUAL CHEST RISE AND FALL, VENT SETTINGS BEFORE. WILL CONTINUE TO MONITOR
[2019-01-06] MEDS: Z-GUARD PASTE TP SCH ×2 (01:24→12:39)
--- NOTE | 2019-01-06 02:35 | NUR ---
RESTING WELL IN BED, ADJUSTED PILLOW AND TOWEL TO MAINTAIN PROPER HEAD/BODY ALIGNMENT. SKIN INTACT, NO OPEN WOUNDS. HYDRAGAURD APPLIED TO SACRAL/BUTTOCKS AREA. RIGHT SIDE FACE/NECK BRUISING.RASH NOTED.
[2019-01-06] MEDS: ALBUTEROL SULFATE/IPRATROPIU 3 ML SOL IH SCH ×6 (03:32→23:25)
--- NOTE | 2019-01-06 03:50 | NUR ---
PATIENT PRESENTED WITH TACHYPNEA. TIDAL VOLUME INCREASED TO 400 ML BASED ON IDEAL BODY WEIGHT. PATIENT RESPIRATORY RATE AND EFFORT IMPROVED. CALLED DR. SINGLETON TO INFORM. PER MD, LEAVE AT VT 400, WILL CONSULT WITH PULMONOLOGY FOR NEW VENT ORDERS. WILL CONTINUE TO MONITOR.
--- NOTE | 2019-01-06 06:34 | NUR ---
REC'D PT ON CARESCAPE VENT SETTINGS AC 14 VT 400 PEEP 5 FIO2 28% ALARMS ON AND AUDIBLE AND AMBU BAG IS AT SIDE OF VENT AND VENT IS PLUGGED INTO RED OUTLET, I\L TX GIVEN WITH DUONEB 3ML WITH NO ADVERSE REACTION POST TX B\S ARE COARSE BILATERALLY, SXN PT MODERATE AMT OF CREAM COLOR SECRETIONS, PT IS ORALLY INTUBATED WITH 7.5 ET TUBE SECURED WITH ANCHOR FAST AT 22CM PT IS RESTING WITH NO SIGNS OF DISTRESS NOTED AT THIS TIIME
--- NOTE | 2019-01-06 06:40 | NUR ---
RESIDENT DOCTOR AT BEDSIDE, OK TO TITRATE LEVOPHED DOWN TO 1 MCG/KG/MIN
[2019-01-06] MEDS: MIDODRINE 5 MG TAB PO SCH ×3 (06:45→18:02)
--- NOTE | 2019-01-06 07:30 | NUR ---
RECEIVED BEDSIDE REPORT FROM SPRING INSPECTOR NURSE, PT OPEN EYES ONLY, APHASIC, UNABLE TO FOLLOW COMMANDS, VSS, FLACC 0, ETT TO VENT WITH AC FIO2 28, VT 400, R 14, PEEP 5, NO DISTRESS, DIMINISHED LUNG SOUNDS DIANA. SR ON TOURIST ESCORT, CAP REFILL <2 SEC, SOFT ABDOMEN WITH ACTIVE BOWEL SOUNDS, OGT IN PLACE, FEEDING WITH JEVITY 1.2 AT 75 ML/HR, 30 ML RESIDUALS, GOMEZ CATHETER IN PLACE, CLEAR YELLOW URINE VIA GRAVITY, SEVERE WEAKNESS TO BLE, SOFT RESTRAIN ON DIANA. WRIST FOR SAFETY, SKIN IS WARM AND DRY TO TOUCH, NO OPEN WOUND PRESENT, CENTRAL LINE TO LIJ, TLC, RUNNING LEVOPHED AT 1 MCG/MIN, ON CVP MONITOR AT 1, HOB ELEVATED TO 30 DEGREES, ORAL CARE PROVIDED, POSITION CHANGED FOR OFF LOAD PRESSURE, SAFETY MEASURE AND SEIZURE PRECAUTION IN PLACE, WILL CONTINUE TO MONITOR.
[2019-01-06] MEDS: LACTULOSE 20 GM/30 ML UDC PO SCH (08:27)
[2019-01-06] MEDS: SENNA 8.6 MG TAB GT SCH (08:27)
[2019-01-06] MEDS: BLOOD GLUCOSE MONITORING 1 DEV DEV FS SCH ×3 (08:27→17:45)
[2019-01-06] MEDS: POLYETHYLENE GLYCOL 17 GM/PKT GT SCH (08:27)
--- NOTE | 2019-01-06 08:30 | NUR ---
SCHEDULED MEDICATION GIVEN, PT TOLERATED WELL. PT'S ENGINE MANAGER AT BEDSIDE NOTED SLIGHT RASH TO PT'S FACE AND REDNESS TO DIANA. EARS, PER CAREGIVER PT ALWAYS HAVE THE WEIRD SIDE EFFECTS OF INCREASING THE VALPROIC ACID DOSAGE BEFORE, THE SIDE EFFECTS WILL BE LOW GRADE FEVER, REDNESS TO EARS, DR. DO MADE AWARE.
[2019-01-06] MEDS: PANTOPRAZOLE 40 MG INJ VIAL IVP SCH ×2 (08:33→20:19)
[2019-01-06] MEDS: ARIPiprazole 10 MG TAB PO SCH (08:33)
[2019-01-06] MEDS: PHENYTOIN 100 MG/4 ML UDC NG SCH ×2 (08:33→20:19)
[2019-01-06] MEDS: FERROUS SULFATE 300 MG/5 ML UDC GT SCH ×2 (08:33→20:20)
[2019-01-06] MEDS: VALPROIC ACID 250 MG/5 ML UDC NG SCH ×2 (08:33→20:19)
[2019-01-06] MEDS: TAMSULOSIN 0.4 MG CAP PO SCH (08:34)
[2019-01-06] MEDS: CALCIUM CARB/VIT-D 500 MG/200 IU 1 TAB PO SCH ×2 (08:34→20:20)
[2019-01-06] MEDS: PRAMIPEXOLE 0.5 MG TAB PO SCH ×2 (08:34→20:20)
[2019-01-06] MEDS: BENZTROPINE 1 MG TAB PO SCH ×2 (08:34→20:20)
[2019-01-06] MEDS: lamoTRIgine 25 MG TAB PO SCH (08:34)
--- NOTE | 2019-01-06 08:34 | NUR ---
PT PLACED ON CPAP 5 PS 10 AND TRISHA TORRES NOTIFIED OF CHANGES MADE TO VENT
[2019-01-06] MEDS: POLYVINYL ALCOHOL 1.4% OP 15 ML SOL OP SCH (08:35)
[2019-01-06 09:55] LABS: BASOPHILS % (AUTO) 0.2 % (0.0-2.0); EOSINOPHILS # (AUTO) 0.1 K/uL (0-0.4); EOSINOPHILS % (AUTO) 1.3 % (0.0-4.0); HEMATOCRIT 31.5 % (36-52); HEMOGLOBIN 10.5 g/dL (12.0-18.0); LYMPHOCYTES # (AUTO) 1.5 K/uL (2.0-11.5); LYMPHOCYTES % (AUTO) 15.5 % (20.5-51.1); MEAN CORPUSCULAR HEMOGLOBIN 32 pg (27-31); MEAN CORPUSCULAR HGB CONC 34 g/dL (33-37); MEAN CORPUSCULAR VOLUME 95.5 fL (80-94); MONOCYTES % (AUTO) 10.4 % (1.7-9.3); NEUTROPHILS # (AUTO) 6.8 K/uL (1.8-7.7); NEUTROPHILS % (AUTO) 72.6 % (42.2-75.2); PLATELET COUNT (AUTO) 243 K/uL (140-450); RED CELL DISTRIBUTION WIDTH 13.8 % (11.6-13.7); WHITE BLOOD COUNT (AUTO) 9.4 K/uL (4.8-10.8)
--- NOTE | 2019-01-06 10:00 | NUR ---
NO CHANGE OF CONDITION, VSS, FLACC 0, POSITION CHANGED FOR OFF LOAD PRESSURE.
--- NOTE | 2019-01-06 11:16 | NUR ---
PT WAS BACK TO AC MODE. PT FAILED CPAP TRIAL TRISHA TORRES NOTIFIED
--- NOTE | 2019-01-06 12:00 | NUR ---
NO CHANGE OF CONDITION, VSS, FLACC 0, ORAL CARE PROVIDED, POSITION CHANGED FOR OFF LOAD PRESSURE.
[2019-01-06 12:05] LABS: POTASSIUM 4.4 mmol/L (3.5-5.1)
[2019-01-06 12:06] LABS: ANION GAP 7.8 (8-16); CARBON DIOXIDE 32.6 mmol/L (21-32); CREATININE 0.4 mg/dL (0.7-1.3)
--- NOTE | 2019-01-06 12:55 | NUR ---
DR. DONNELLY CAME IN TO SEE PATIENT AT BEDSIDE, NO NEW ORDER AT THIS TIME.
[2019-01-06 13:25] LABS: MAGNESIUM 1.9 mg/dL (1.8-2.4); PHOSPHORUS 3.4 mg/dL (2.5-4.9)
--- NOTE | 2019-01-06 14:00 | NUR ---
PT'S HAS MORE RASHES ON FACE, TEMP 99.6F AT THIS TIME, DR. LEVY NOTIFED AND SEEN PATIENT AT BEDSIDE, WILL FOLLOW UP WITH NEW ORDERS.
[2019-01-06 14:01] LABS: PROTHROMBIN TIME 9.9 secs (10.8-13.4)
--- NOTE | 2019-01-06 16:00 | NUR ---
PM CARE AND ORAL CARE PROVIDED, GOMEZ CATHETER CARE DONE, NO S/S OF DISTRESS, VSS, FLACC 0, TEMP 100.0F. ORAL CARE PROVIDED, POSITION CHANGED FOR OFF LOAD PRESSURE.
--- NOTE | 2019-01-06 16:24 | NUR ---
01/06/19 RD FOLLOW UP COMPLETED PLEASE REFER TO NUTRITION ASSESSMENT UNDER CARE ACTIVITY FOR ESTIMATED NUTRITIONAL NEEDS. 1. CONTINUE JEVITY AT 75ML/HR WITH A FREE WATER FLUSH OF 120ML Q4HR. -THIS PROVIDES 2160KCAL, 108G PROTEIN AND 2520ML TOTAL FLUID DAILY. THIS MEETS >75% ESTIMATED NEEDS. 2. IF PT IS EXTUBATED, RECOMMEND SWALLOW EVALUATION 3. RD WILL F/U 2-3 DAYS; HIGH RISK CHRISSIE ART RD
--- NOTE | 2019-01-06 16:45 | NUR ---
DR. RAY CAME IN TO SEE PATIENT AT BEDSIDE, CHECKED THE RASH AND BRUISING AREA TO THE HEAD, STATED JUST MONITOR RIGHT NOW, NO NEW ORDER AT THIS TIME.
[2019-01-06] MEDS: DOCUSATE 100 MG/10 ML UDC NG SCH (17:00)
--- NOTE | 2019-01-06 18:00 | NUR ---
PT HAD TEMP 100.8F, NO S/S OF DISTRESS, FLACC 0, COOLING MEASURE IN USE, DR. DO MADE AWARE, POSITION CHANGED FOR OFF LOAD PRESSURE, WILL CONTINUE TO MONITOR.
--- NOTE | 2019-01-06 19:13 | NUR ---
REPORT GIVEN TO LAW SECRETARY NURSE AT BEDSIDE FOR CONTINUE OF CARE.
--- NOTE | 2019-01-06 19:15 | NUR ---
RECEIVED REPORT FROM DAYSHIFT NURSE FOR CONTINUITY OF CARE, PATIENT IN BED, OPENS EYES SPONTANEOUSLY, ANOx1, ALSO OPENS EYES TO VOICE/NAME. VISIBLE RASH/DERMATITIS ON FOREHEAD, SLIGHTLY RED. TEMPERATURE 101.9, COOLING MEASURES IN PLACE. ETT TO VENT, FI02 28%, TV 400, RATE 14, PEEP 5, RESPIRATIONS 24, EQUAL CHEST RISE, LUNG SOUNDS RHONCHI THROUGHOUT. PATIENT HAS LEFT IJ IN PLACE INFUSING NS @ 10/ML, AND LEVOPHED AT 3 MCG/KG/MIN ( 11.25 ML/HR) BP STABLE. CVP MONITORING IN PLACE, ZERO'D LINE. CENTRAL LINE DRESSING DRY, CLEAN, AND INTACT S1S2, SR ON MONITOR. ABDOMEN SOFT AND NONTENDER, BOWEL SOUNDS ACTIVE, OGT IN PLACE TO FEEDING-JEVITY 1.2 @ 75ML/HR, CONFIRMED PLACEMENT VIA AUSCULTATION, RESIDUALS 35 ML. GOMEZ CATHETER IN PLACE, CLEAR YELLOW URINE NOTED IN BAG. HEEL PROTECTORS IN PLACE. HOB 30 DEGREES, BED LOCKED AND IN LOW POSITION, SIDERAILS PADDED. WILL FOLLOWUP CARE AND PENDING PRN ORDERS FOR FEVER.
--- NOTE | 2019-01-06 19:29 | NUR ---
RECEIVED PATIENT ENDOTRACHEALLY INTUBATED WITH 7. 5 ETT TO MECHANICAL VENTILATOR AT DOCUMENTED SETTINGS. VENT CHECK DONE. VENT ALARMS ON AND AUDIBLE. VENT PLUGGED INTO CORRECT OUTLET WITH WHEELS LOCKED. AMBU BAG AT BEDSIDE. AIRWAY SECURE AND PATENT. SUCTIONED LARGE AMOUNT OF THICK, CREAMY, YELLOW SECRETIONS. SCHEDULED BREATHING TREATMENT ADMINISTERED. TOLERATED TX WELL WITHOUT ADVERSE SIDE EFFECTS. VAP ORAL CARE DONE. NO ACUTE RESPIRATORY DISTRESS NOTED AT THIS TIME. WILL CONTINUE TO MONITOR.
[2019-01-06] MEDS: ACETAMINOPHEN 160 MG/5 ML UDC NG PRN (20:22)
--- NOTE | 2019-01-06 20:30 | NUR ---
PRN TYLENOL ADMINISTERED FOR FEVER OF 101.9-TEMPORAL ARTERY SCAN. COOLING MEASURES REINFORCED. WILL CONTINUE TO MONITOR
--- NOTE | 2019-01-06 21:10 | NUR ---
PATIENT TURNED AND REPOSITIONED FOR PROPER BODY ALIGNMENT. PATIENT HAD A VERY LARGE BOWEL MOVEMENT, LOOSE AND BROWN. CLEANED AND DRIED PERINEAL AREA. SKIN INTACT, NO SIGN OF SKIN BREAKDOWN. FLACC 0
--- NOTE | 2019-01-06 22:35 | NUR ---
RECHECKED TEMPERATURE, 98.0 VIA TEMPORAL ARTERY SCAN. REMOVED COOLING MEASURES, BUT CONTINUE TO LEAVE OFF EXCESS BLANKETS. FACIAL FLUSHING IMPROVING. SUCTIONED MOUTH- CLEAR-YELLOW SECRETIONS NOTED. CONTINUE CLOSE MONITORING
--- NOTE | 2019-01-06 23:31 | NUR ---
VENT CHECK DONE. ALARMS ON AND AUDIBLE. SCHEDULED BREATHING TREATMENT ADMINISTERED. TOLERATED TX WELL WITHOUT ADVERSE SIDE EFFECTS. VAP ORAL CARE DONE. SUCTIONED SMALL AMOUNT OF THICK, CREAMY SECRETIONS. NO ACUTE DISTRESS NOTED AT THIS TIME. WILL CONTINUE TO MONITOR.
[2019-01-07] VITALS (103 sets, daily range): BP systolic 75–152; BP diastolic 39–93
[2019-01-07] MEDS: VANCOMYCIN 500 MG VIAL PO SCH ×4 (00:45→17:28)
--- NOTE | 2019-01-07 01:10 | NUR ---
SOFT WRIST RESTRAINTS REMOVED FOR SKIN AND CIRCULATION ASSESSMENT. NO SIGNS OF SKIN BREAKDOWN. PATIENT MORE ALERT/AWAKE. SHAKING HEAD AND HANDS REACH TOWARDS FACE/MOUTH. ETT TO VENT IN PLACE, OGT TO FEEDING IN PLACE. NOT SAFE FOR RESTRAINTS TO BE REMOVED AT THIS TIME
[2019-01-07] MEDS: Z-GUARD PASTE TP SCH ×2 (01:30→12:38)
--- NOTE | 2019-01-07 02:50 | NUR ---
PATIENTS TEMPERATURE STABLE, SKIN WARM TO TOUCH, FLUSHING OF THE FACE IMPROVED. VENT SETTINGS THE SAME START OF SHIFT, CONTINUE FREQUENT SUCTIONING OF THE MOUTH, EXCESS SECRETIONS NOTED. NO SIGNS OF DISTRESS AT THIS TIME
[2019-01-07] MEDS: ALBUTEROL SULFATE/IPRATROPIU 3 ML SOL IH SCH ×6 (04:09→23:31)
--- NOTE | 2019-01-07 04:22 | NUR ---
VENT CHECK DONE. SCHEDULED BREATHING TREATMENT ADMINISTERED. TOLERATED TX WELL WITHOUT ADVERSE SIDE EFFECTS. VAP ORAL CARE DONE. SUCTIONED LARGE AMOUNT OF THICK, CREAMY SECRETIONS. NO ACUTE RESPIRATORY DISTRESS NOTED AT THIS TIME. WILL CONTINUE TO MONITOR.
[2019-01-07] MEDS: MIDODRINE 5 MG TAB PO SCH ×4 (06:08→19:00)
[2019-01-07 06:36] LABS: ANION GAP 11.1 (8-16); CREATININE 0.4 mg/dL (0.7-1.3); POTASSIUM 4.1 mmol/L (3.5-5.1)
[2019-01-07 06:48] LABS: BASOPHILS % (AUTO) 0.1 % (0.0-2.0); EOSINOPHILS # (AUTO) 0.1 K/uL (0-0.4); EOSINOPHILS % (AUTO) 0.5 % (0.0-4.0); HEMATOCRIT 28.8 % (36-52); HEMOGLOBIN 9.7 g/dL (12.0-18.0); LYMPHOCYTES # (AUTO) 1.2 K/uL (2.0-11.5); LYMPHOCYTES % (AUTO) 10.5 % (20.5-51.1); MEAN CORPUSCULAR HEMOGLOBIN 32 pg (27-31); MEAN CORPUSCULAR HGB CONC 34 g/dL (33-37); MEAN CORPUSCULAR VOLUME 95.1 fL (80-94); MONOCYTES # (AUTO) 1.7 K/uL (0.8-1.0); NEUTROPHILS # (AUTO) 8.3 K/uL (1.8-7.7); NEUTROPHILS % (AUTO) 73.9 % (42.2-75.2); PLATELET COUNT (AUTO) 238 K/uL (140-450); RED BLOOD CELL COUNT(AUTO) 3.03 MIL/uL (4.20-6.10); RED CELL DISTRIBUTION WIDTH 13.6 % (11.6-13.7); WHITE BLOOD COUNT (AUTO) 11.2 K/uL (4.8-10.8)
--- NOTE | 2019-01-07 07:06 | NUR ---
RECEIVED BEDSIDE REPORT FROM LOSS PREVENTION AUDITOR RN, SIMON, FOR CONTINUITY OF CARE. PATIENT OPENS EYES SPONTANEOUSLY TO NAME, ABLE TO FOLLOW SIMPLE COMMANDS. HIS SKIN IS AFEBRILE, WARM, INTACT WITH REDNESS TO FOREHEAD. PATIENT HAS LEFT IJ, TLC, ASYMPTOMATIC AND PATENT. HE HAS LEVOPHED AT 3MCG, BP 99/52, FLACC 0. PATIENT IS ETT TO VENT, BREATHING EVEN AND UNLABORED. HE HAS OGT TO FEEDING IN PLACE, NO RESIDUAL NOTED. GOMEZ CATHETER IN PLACE TO CLEAR YELLOW URINE. NO SIGNS OF DISTRESS NOTED, WILL CONTINUE TO MONITOR
--- NOTE | 2019-01-07 07:21 | NUR ---
RECEIVED PT ON VENT WITH SETTINGS CHARTED BREATH SOUNDS PRESENT BILAT COARSE SXN PT WITH MIN TO MOD AMT THICK OFFWHITE SECS ETT SECURE AMBU BAG AT BEDSIDE VENT PLUGGED INTO RED OUTLET WILL CONTINUE TO MONITOR PT ON VENT
[2019-01-07] MEDS: FERROUS SULFATE 300 MG/5 ML UDC GT SCH ×2 (08:16→21:00)
[2019-01-07] MEDS: CALCIUM CARB/VIT-D 500 MG/200 IU 1 TAB PO SCH ×2 (08:16→21:00)
[2019-01-07] MEDS: SENNA 8.6 MG TAB GT SCH (08:17)
[2019-01-07] MEDS: PHENYTOIN 100 MG/4 ML UDC NG SCH ×2 (08:17→21:00)
[2019-01-07] MEDS: TAMSULOSIN 0.4 MG CAP PO SCH (08:17)
[2019-01-07] MEDS: PANTOPRAZOLE 40 MG INJ VIAL IVP SCH ×2 (08:18→20:51)
[2019-01-07] MEDS: POLYETHYLENE GLYCOL 17 GM/PKT GT SCH (08:18)
[2019-01-07] MEDS: LACTULOSE 20 GM/30 ML UDC PO SCH (08:19)
[2019-01-07] MEDS: POLYVINYL ALCOHOL 1.4% OP 15 ML SOL OP SCH (08:19)
[2019-01-07] MEDS: VALPROIC ACID 250 MG/5 ML UDC NG SCH ×2 (08:22→21:00)
--- NOTE | 2019-01-07 08:54 | NUR ---
PATIENT'S SISTER AT BEDSIDE, UPDATED ON PATIENT'S CONDITION BY DR. SZYMANSKI.
--- NOTE | 2019-01-07 09:04 | NUR ---
PATIENT PLACE ON CPAP MODE, RT AT BEDSIDE, TUBE FEEDING HELD AT 0850. NO SIGNS OF DISTRESS, WILL CONTINUE TO MONITOR
[2019-01-07] MEDS: ARIPiprazole 10 MG TAB PO SCH (09:19)
[2019-01-07] MEDS: lamoTRIgine 25 MG TAB PO SCH (09:19)
[2019-01-07] MEDS: PRAMIPEXOLE 0.5 MG TAB PO SCH ×2 (09:19→21:00)
[2019-01-07] MEDS: BENZTROPINE 1 MG TAB PO SCH ×2 (09:19→21:00)
[2019-01-07] MEDS: BLOOD GLUCOSE MONITORING 1 DEV DEV FS SCH ×3 (09:24→16:35)
--- NOTE | 2019-01-07 11:10 | NUR ---
PT EXTUBATED AND PLACED ON 2LPM NC WILL CONTINUE TO MONITOR PT ON NC POST EXTUBATION
[2019-01-07] MEDS ORDERED: methylPREDNISolone SS 125 MG/2 ML VIAL ONE (12:06)
--- NOTE | 2019-01-07 12:07 | NUR ---
DR. DESHPANDE IS HERE TO SEE PATIENT, UPDATED ON PATIENT'S CONDITION
[2019-01-07] MEDS ORDERED: RACEPINEPHRINE 2.25% 13.5 MG/0.5 ML NEBU INH ONE (12:12)
[2019-01-07] MEDS ORDERED: methylPREDNISolone SS 125 MG/2 ML VIAL IVP SCH (12:15)
[2019-01-07] MEDS ORDERED: EPINEPHrine PFS 0.1 MG/ML SYR IVP SCH (12:25)
[2019-01-07] MEDS ORDERED: RACEPINEPHRINE 2.25% 13.5 MG/0.5 ML NEBU INH SCH (12:30)
[2019-01-07] MEDS ORDERED: RACEPINEPHRINE 2.25% 13.5 MG/0.5 ML NEBU INH PRN (12:50)
--- NOTE | 2019-01-07 13:12 | NUR ---
PLACED PATIENT ON NONREBREATHER MASK AT 15LPM DUE TO PATIENT DESAT TO 86% ON NASAL CANNULA 4LPM.
[2019-01-07] MEDS ORDERED: POLYETHYLENE GLYCOL 17 GM/PKT PO SCH (14:00)
[2019-01-07] MEDS ORDERED: MAGNESIUM CITRATE 300 ML BTL PO SCH (14:30)
--- NOTE | 2019-01-07 14:31 | NUR ---
ADMINISTERED SOAP SUDS ENEMA, PATIENT TOLERATING WELL. WILL CONTINUE TO MONITOR
[2019-01-07] MEDS: RACEPINEPHRINE 2.25% 13.5 MG/0.5 ML NEBU INH SCH ×2 (14:37→16:16)
--- NOTE | 2019-01-07 15:06 | NUR ---
PER DR. DO, INSERT NGT TOMORROW WHEN TRACHEA IS LESS SWOLLEN FROM EXTUBATION.
--- NOTE | 2019-01-07 16:17 | NUR ---
DR. DO CALLED, UPDATED ON PATIENT'S CONDITION. STATES SHE WILL CALL DR. SON TO SEE IF PATIENT NEEDS TO BE PUT ON BIPAP
[2019-01-07] MEDS ORDERED: FUROSEMIDE 40 MG/4 ML VIAL IVP SCH (16:40)
--- NOTE | 2019-01-07 16:45 | NUR ---
pt placed on bipap with settings as charted per dr orders
[2019-01-07] MEDS: MORPHINE SULFATE 2 MG/ML SYR IVP PRN (16:48)
--- NOTE | 2019-01-07 16:48 | NUR ---
P.T. NOTES P.T. EDINSON COMPLETED; NURSING TO DO PROM B UE/LE JAYLA ONCE DAILY INC W/ ADLs. Addendum: 01/07/19 at 1648 by Carmel Do PT Amended: Links added.
[2019-01-07] MEDS: methylPREDNISolone SS 40 MG/ML VIAL IVP SCH (17:34)
--- NOTE | 2019-01-07 18:37 | NUR ---
CALLED DR. INFANTE REGARDING PO MEDICATIONS AND NPO STATUS OF PATIENT. NO NEW ORDERS RECEIVED. WILL CONTINUE NPO STATUS. Addendum: 01/07/19 at 2132 by Gianni Saleh RN ERROR: TIME [id number]
--- NOTE | 2019-01-07 19:20 | NUR ---
RECEIVED PT FROM AM NURSE. PT AT BED AWAKE, LABORED BREATHING, RR 36 PER MINUTE, HEART RATE REGULAR S1S2 PRESENT, CAP REFILL <3S, PULSES 2+ BILATERAL UPPER AND LOWER EXTREMITIES, LUNG SOUNDS CLEAR THROUGHOUT, PT ON BIPAP, ABDOMEN SOFT, ROUND, NONDISTENDED, NONTENDER, BLADDER, SOFT, ROUND, NONDISTENDED, NONTENDER, FC IN PLACE. PT HAS LEFT IJ TRIPLE LUMEN RUNNING NS AT 10 ML/HR, LEVOPHED 4 MG AT 4 MCG/MIN. SKIN INTACT, SACRAL AREA HAS BLANCHABLE REDNESS, RIGHT NECK HAS SKIN DISCOLORATION, SKIN WARM, DRY, COLOR APPROPRIATE TO ETHNICITY. PT HAS GENERALIZED WEAKNESS, HOB 30 DEGREES, SIDERAILS UP X2, BED AT LOWEST POSITION.
--- NOTE | 2019-01-07 21:20 | NUR ---
REPOSITIONED PT. CLEANED PT. PT STILL TACHYPNEIC AT THIS TIME. WILL CONTINUE TO MONITOR PT.
--- NOTE | 2019-01-07 23:10 | NUR ---
PT AT BED, AWAKE, LABORED BREATHING ON BIPAP, HOB 30 DEGREES, SIDE RAILS UP X2, BED AT LOWEST POSITION. WILL CONTINUE TO MONITOR.
[2019-01-08] VITALS (30 sets, daily range): BP systolic 62–102; BP diastolic 36–64
[2019-01-08] MEDS: VANCOMYCIN 500 MG VIAL PO SCH
[2019-01-08] MEDS ORDERED: NOREPINEPHRINE 4 MG/4 ML VIAL IV ONE (00:14)
[2019-01-08] MEDS: methylPREDNISolone SS 40 MG/ML VIAL IVP SCH (00:26)
[2019-01-08] MEDS: Z-GUARD PASTE TP SCH (01:14)
[2019-01-08] MEDS: MORPHINE SULFATE 2 MG/ML SYR IVP PRN ×3 (01:20→03:39)
[2019-01-08] MEDS ORDERED: MORPHINE SULFATE 50 MG in NACL 0.9% 45 ML IV PRN (01:35)
--- NOTE | 2019-01-08 02:35 | NUR ---
PT FAMILY AT BEDSIDE. DR. ALSTON AND DR. SINGLETON AT BEDSIDE. UPDATED FAMILY ON PT CONDITION.
[2019-01-08] MEDS: ALBUTEROL SULFATE/IPRATROPIU 3 ML SOL IH SCH (03:00)
--- NOTE | 2019-01-08 03:20 | NUR ---
FAMILY AT BED SIDE, WAITING FOR THE MORPHINE TO START AND TAKE THE BIPAP OFF, PLACED HIM IN 2L NASAL CANULA FOR COMFORT
[2019-01-08] MEDS: LORazepam 2 MG/ML VIAL IVP PRN (03:39)
[2019-01-08] MEDS ORDERED: LORazepam 2 MG/ML VIAL IVP SCH (04:00)
[2019-01-08] MEDS ORDERED: MORPHINE SULFATE 10 MG/ML VIAL ONE (04:17)
--- NOTE | 2019-01-08 04:46 | NUR ---
MORPHINE DRIP STARTED.
--- NOTE | 2019-01-08 06:45 | NUR ---
PT COMFORTABLE AT BED EYES CLOSED, BREATHING REGULARLY ON ROOM AIR. MORPHINE DRIP RUNNING. FAMILY AT BED SIDE.
--- NOTE | 2019-01-08 07:07 | NUR ---
RECEIVED REPORT FROM NURSING PROGRAM COORDINATOR RNNICKY. PATIENT IS ON COMFORT CARE MEASURES. MORPHINE DRIP AT 14MG/HR. IV SITE IS LIJ, TRIPLE LUMEN CENTRAL LINE. PATIENT HAS GOMEZ CATHETER TO CLEAR YELLOW URINE. FAMILY AT BEDSIDE, WILL CONTINUE TO MONITOR
--- NOTE | 2019-01-08 07:20 | NUR ---
CHANGE OF SHIFT REPORT GIVEN TO AM NURSE.
[2019-01-08] MEDS ORDERED: MORPHINE SULFATE 100 MG in NACL 0.9% 90 ML IV PRN (07:25)
--- NOTE | 2019-01-08 07:36 | NUR ---
recived pt on room air family members bedside comfort measures only at this time
--- NOTE | 2019-01-08 08:33 | NUR ---
PATIENT IS BRADYCARDIC, 30'S-40'S, RESTING COMFORTABLY, WILL CONTINUE TO MONITOR.
--- NOTE | 2019-01-08 08:50 | NUR ---
DR. DO PRONOUNCED PATIENT'S AT 0845, FAMILY AT BEDSIDE.
[2019-01-08] MEDS ORDERED: POLYETHYLENE GLYCOL 17 GM/PKT PO SCH (09:00)
[2019-01-08] MEDS ORDERED: SENNA 8.6 MG TAB PO SCH (09:00)
--- NOTE | 2019-01-08 09:10 | NUR ---
SPOKE WITH VICKY FROM [facility]. STATES THAT THEY WILL NOT BE TAKING THE BODY, REF NUMBER IS [id number]
--- NOTE | 2019-01-08 10:06 | NUR ---
SPOKE WITH [facility] [employer] DEPUT[employer]ori HERNANDEZ, STATES PATIENT IS NOT A MOBILE TESTER'S CASE AND BODY CAN BE RELEASED.
--- NOTE | 2019-01-08 12:16 | NUR ---
BODY [facility]ICK[facility]
== END 2019-01-08 12:17 | disposition expired | DRG 870 ==
LOC: MED 10:34 → MIC 12:44
PROVIDERS: ADMIT General Practice; ATTEND General Practice
PROC: 02HV33Z Insertion of Infusion Device into Superior Vena Cava, Percutaneous Approach (ICD-10-PCS; 2018-12-30)
PROC: B548ZZA Ultrasonography of Superior Vena Cava, Guidance (ICD-10-PCS; 2018-12-30)
PROC: 4A133B1 Monitoring of Arterial Pressure, Peripheral, Percutaneous Approach (ICD-10-PCS; 2018-12-30)
PROC: 5A09357 Assistance with Respiratory Ventilation, Less than 24 Consecutive Hours, Continuous Positive Airway Pressure (ICD-10-PCS; 2018-12-30)
PROC: 5A1955Z Respiratory Ventilation, Greater than 96 Consecutive Hours (ICD-10-PCS; principal; 2018-12-31)
PROC: 0BH17EZ Insertion of Endotracheal Airway into Trachea, Via Natural or Artificial Opening (ICD-10-PCS; 2018-12-31)
PROC: 5A09357 Assistance with Respiratory Ventilation, Less than 24 Consecutive Hours, Continuous Positive Airway Pressure (ICD-10-PCS; 2018-12-31)
DX: A41.9 Sepsis, unspecified organism (principal); J18.9 Pneumonia, unspecified organism; G93.41 Metabolic encephalopathy; E43 Unspecified severe protein-calorie malnutrition; J96.21 Acute and chronic respiratory failure with hypoxia; R65.21 Severe sepsis with septic shock; N39.0 Urinary tract infection, site not specified; N17.9 Acute kidney failure, unspecified; J44.0 Chronic obstructive pulmonary disease with (acute) lower respiratory infection; J98.11 Atelectasis; R65.20 Severe sepsis without septic shock; Z68.20 Body mass index [BMI] 20.0-20.9, adult; N40.0 Benign prostatic hyperplasia without lower urinary tract symptoms; F20.9 Schizophrenia, unspecified; G40.909 Epilepsy, unspecified, not intractable, without status epilepticus; G80.9 Cerebral palsy, unspecified; G20 Parkinson's disease; F29 Unspecified psychosis not due to a substance or known physiological condition; F41.1 Generalized anxiety disorder; E55.9 Vitamin D deficiency, unspecified; K21.9 Gastro-esophageal reflux disease without esophagitis; G47.00 Insomnia, unspecified; K59.00 Constipation, unspecified; H10.9 Unspecified conjunctivitis; Z16.11 Resistance to penicillins; B96.20 Unspecified Escherichia coli [E. coli] as the cause of diseases classified elsewhere; I46.9 Cardiac arrest, cause unspecified; Z51.5 Encounter for palliative care; Z79.899 Other long term (current) drug therapy
CPT/HCPCS: 31500; 36415; 36600; 70450; 71045; 74018; 76536; 80048; 80053; 80185; 80202; 80305; 81001; 82140; 82150; 82533; 82607; 82728; 82746; 82803; 82948; 83036; 83540; 83605; 83690; 83735; 83880; 84100; 84134; 84439; 84443; 84484; 85025; 85045; 85610; 85730; 87040; 87070; 87081; 87086; 87186; 87205; 89220; 93005; 94002; 94003; 94640; 94660; 96365; 97161-GP; 99291; C1758; C9113; J0171; J0696; J1642; J1644; J1720; J1940; J2060; J2250; J2270; J2543; J2704; J2920; J2930; J3010; J3370; J3411; J3475; J3490; J7030; J7060; J7620; Q0092